=== PATIENT | male | born 1975 | race Caucasian/White ===

== ENCOUNTER 2017-09-27 18:36 | Emergency (ER) | payer OTHER ==
[~2017-09-27] VITALS: Ht 177.8 cm; Wt 122.9 kg
[~2017-09-27 18:36] MED LIST: ALBU90I; ALBU90OI; ALBU90OI INH; ALBU90OI6; ALBU90OI61 INH; ALBUIS; AMLO5 PO; AMOX500 PO; ARIP10 PO; ATEN25 PO; BUPR150T2 PO; CEPH500 PO; CITA20; CITA20 PO; CODACE30 PO; CRUTCH2 USE; CRUTCH4 USE; CRUTCH4 XX; CYCL10 PO; Colace100 MG PO; Crutch1 EACH MISC; DEPAKOTE; DIVA500EC; DIVA500ER; DOXY100 PO; DULO60 PO; ERGO400 PO; ESCI10; FLUO10 PO; FURO40; GLIP2.5ER PO; GLIP5 PO; GLIP5ER PO; HYDACE5 PO; HYDCOR2.5C PR; HYDHCL25 PO; HYDR1TAB94 PO; HYDR25SUP PR; Hair, Skin & N1 EACH; IBUP600 PO; IBUP800; IBUP800 PO; INDO50 PO; LEXAPRO; LISI20 PO; LISI5 PO; LORA.5 PO; LORA1 PO; METF500 PO; METFORMIN HCL500 MG; NAPR500 PO; NAPR550 PO; NYST100TC TOP; Naprosyn500 MG PO; Norco 5-325 Ta1 EACH PO; OXYACE5T PO; PRAV20 PO; PROACE100 PO; PROM25 PO; Percocet 5-3251 EACH PO; Prednisone20 MG PO; QUET100 PO; QUET25; QUET25 PO; RXCODACET PO; RXCYCL10 PO; RXHYDACE PO; RXLORA1 PO; RXPROACE PO; RXPROM25 PO; SERT50; SPIHYD PO; SULF10OPSA OU; Seroquel PO; Silvadene20 GM TOP; TOPI100 PO; TOPI25; TOPI25 PO; TRAZ100; TRAZ100 PO; TRIA80TC TOP; UNKNOWN B/P MED; Ultram50 MG PO; VENL75; ZOLP10 PO; Zofran Odt4 MG SL; [UNRECOGNIZED DRUG - REMARK]
[2017-09-27] MEDS ORDERED: TOPI100 PO (19:02)
[2017-09-27] MEDS ORDERED: ATOR10 (19:03)
[2017-09-27] MEDS ORDERED: PRAV20 (19:03)
[2017-09-27] MEDS ORDERED: LOSA25 (19:03)
[2017-09-27 19:54] LABS: BASOPHILS ABSOLUTE AUTO 0.04 K/mm3 (0.00-0.23); BASOPHILS PERCENT AUTO 1 % (0-2); EOSINOPHILS ABSOLUTE AUTO 0.29 K/mm3 (0.00-0.68); EOSINOPHILS PERCENT AUTO 3 % (0-6); Hemoglobin 14.2 g/dL (13.5-17.5); IMMATURE GRAN ABSOLUTE AUTO 0.04 K/mm3 (0.00-0.10); IMMATURE GRAN PERCENT AUTO 1 % (0-1); LYMPHOCYTES PERCENT AUTO 37 % (21-46); MONOCYTES ABSOLUTE AUTO 0.55 K/mm3 (0.16-1.47); MONOCYTES PERCENT AUTO 7 % (4-13); Mean Corpuscular HGB 29.6 pg (26.0-34.0); Mean Corpuscular HGB Conc 35.5 g/dL (31.5-36.5); Mean Corpuscular Volume 84 fL (80-100); Mean Platelet Volume 11.2 fL (9.1-12.4); NEUTROPHILS ABSOLUTE AUTO 4.44 K/mm3 (1.96-9.15); NEUTROPHILS PERCENT AUTO 53 % (41-73); Platelet Count 272 K/mm3 (150-400); RDW Coefficient Variation 11.8 % (11.7-14.2); RDW Standard Deviation 35.8 fL (35.1-46.3); Red Blood Cell Count 4.79 M/mm3 (4.30-5.90); White Blood Cell Count 8.46 K/mm3 (4.00-11.30)
[2017-09-27 20:09] LABS: Troponin I <0.015 ng/mL (0.000-0.040)
[2017-09-27 20:24] LABS: Alanine Aminotransfer (ALT/SGP 104 U/L (12-78); Albumin, Blood 3.6 g/dL (3.4-5.0); Albumin/Globulin Ratio 0.8 (0.8-1.8); Alk Phos 75 U/L (50-136); Anion Gap 7 mmol/L (6-16); Aspartate Aminotrans (AST/SGOT 76 U/L (12-37); Bilirubin, Total 0.4 mg/dL (0.1-1.0); Blood Urea Nitrogen 12 mg/dL (8-24); Bun/Creatinine Ratio 18.5 (12.0-20.0); CO2, Blood 25 mmol/L (21-32); Calcium, Blood 8.9 mg/dL (8.5-10.1); Chloride, Blood 104 mmol/L (98-108); Creatinine, Blood 0.65 mg/dL (0.60-1.20); Globulin, Blood 4.5 g/dL (2.2-4.0); Glomerular Filtration Rate >60 (60-); Glucose, Blood 236 mg/dL (70-99); Sodium, Blood 136 mmol/L (136-145); Total Protein, Blood 8.1 g/dL (6.4-8.2)
[2017-09-27] MEDS ORDERED: Prednisone20 MG PO (22:03)
== END 2017-09-27 22:15 | disposition home or self-care (01) ==
LOC: ER 18:36
PROVIDERS: Emergency Medicine
DX: J98.01 Acute bronchospasm (principal); I10 Essential (primary) hypertension; E11.9 Type 2 diabetes mellitus without complications; F32.9 Major depressive disorder, single episode, unspecified; F17.200 Nicotine dependence, unspecified, uncomplicated; G40.909 Epilepsy, unspecified, not intractable, without status epilepticus; Z79.899 Other long term (current) drug therapy; Z79.84 Long term (current) use of oral hypoglycemic drugs
CPT/HCPCS: 71046; 80053; 84484; 85025; 93005; 93010; 94640; 96361; 96374; 96375; 99284; J1885; J7030

== ENCOUNTER 2017-11-12 17:23 | Emergency (ER) | payer OTHER ==
[~2017-11-12] VITALS: Ht 172.7 cm; Wt 125.2 kg
[~2017-11-12 17:23] MED LIST changes: +ATOR10; +LOSA25; +PRAV20
[2017-11-12 17:57] LABS: BASOPHILS ABSOLUTE AUTO 0.05 K/mm3 (0.00-0.23); BASOPHILS PERCENT AUTO 1 % (0-2); EOSINOPHILS ABSOLUTE AUTO 0.28 K/mm3 (0.00-0.68); EOSINOPHILS PERCENT AUTO 4 % (0-6); Hematocrit 40.1 % (37.0-53.0); Hemoglobin 13.9 g/dL (13.5-17.5); IMMATURE GRAN ABSOLUTE AUTO 0.02 K/mm3 (0.00-0.10); IMMATURE GRAN PERCENT AUTO 0 % (0-1); LYMPHOCYTES ABSOLUTE AUTO 2.28 K/mm3 (0.84-5.20); LYMPHOCYTES PERCENT AUTO 32 % (21-46); MONOCYTES ABSOLUTE AUTO 0.46 K/mm3 (0.16-1.47); MONOCYTES PERCENT AUTO 7 % (4-13); Mean Corpuscular HGB 29.8 pg (26.0-34.0); Mean Corpuscular HGB Conc 34.7 g/dL (31.5-36.5); Mean Corpuscular Volume 86 fL (80-100); Mean Platelet Volume 10.6 fL (9.1-12.4); NEUTROPHILS ABSOLUTE AUTO 4.04 K/mm3 (1.96-9.15); NEUTROPHILS PERCENT AUTO 57 % (41-73); Platelet Count 232 K/mm3 (150-400); RDW Coefficient Variation 11.7 % (11.7-14.2); RDW Standard Deviation 36.4 fL (35.1-46.3); Red Blood Cell Count 4.67 M/mm3 (4.30-5.90); White Blood Cell Count 7.13 K/mm3 (4.00-11.30)
[2017-11-12] MEDS ORDERED: BASAGLAR K100 UNIT/1 SC (18:15)
[2017-11-12 18:23] LABS: Alanine Aminotransfer (ALT/SGP 49 U/L (12-78); Albumin, Blood 3.5 g/dL (3.4-5.0); Albumin/Globulin Ratio 0.9 (0.8-1.8); Alk Phos 75 U/L (50-136); Anion Gap 8 mmol/L (6-16); Aspartate Aminotrans (AST/SGOT 29 U/L (12-37); Bilirubin, Total 0.2 mg/dL (0.1-1.0); Blood Urea Nitrogen 12 mg/dL (8-24); Bun/Creatinine Ratio 17.4 (12.0-20.0); CO2, Blood 25 mmol/L (21-32); Calcium, Blood 8.9 mg/dL (8.5-10.1); Chloride, Blood 103 mmol/L (98-108); Creatinine, Blood 0.69 mg/dL (0.60-1.20); Globulin, Blood 4.1 g/dL (2.2-4.0); Glomerular Filtration Rate >60 (60-); Glucose, Blood 360 mg/dL (70-99); Potassium, Blood 4.2 mmol/L (3.5-5.5); Sodium, Blood 136 mmol/L (136-145); Total Protein, Blood 7.6 g/dL (6.4-8.2)
== END 2017-11-12 19:40 | disposition home or self-care (01) ==
LOC: ER 17:23
PROVIDERS: Emergency Medicine
DX: E11.65 Type 2 diabetes mellitus with hyperglycemia (principal); E72.51 Non-ketotic hyperglycinemia; G40.909 Epilepsy, unspecified, not intractable, without status epilepticus; I10 Essential (primary) hypertension; J45.909 Unspecified asthma, uncomplicated; F32.9 Major depressive disorder, single episode, unspecified; F17.200 Nicotine dependence, unspecified, uncomplicated; Z79.899 Other long term (current) drug therapy; Z79.84 Long term (current) use of oral hypoglycemic drugs; Z79.52 Long term (current) use of systemic steroids
CPT/HCPCS: 36415; 80053; 81000; 82947; 85025; 96360; 99283; J1815; J7030

== ENCOUNTER 2018-08-01 16:41 | Emergency (ER) | payer OTHER ==
[~2018-08-01] VITALS: Ht 172.7 cm; Wt 124.3 kg
[~2018-08-01 16:41] MED LIST changes: +BASAGLAR K100 UNIT/1 SC
[2018-08-01 17:15] LABS: BASOPHILS ABSOLUTE AUTO 0.05 K/mm3 (0.00-0.23); BASOPHILS PERCENT AUTO 1 % (0-2); EOSINOPHILS ABSOLUTE AUTO 0.17 K/mm3 (0.00-0.68); EOSINOPHILS PERCENT AUTO 2 % (0-6); Hematocrit 40.4 % (37.0-53.0); Hemoglobin 14.2 g/dL (13.5-17.5); IMMATURE GRAN ABSOLUTE AUTO 0.03 K/mm3 (0.00-0.10); IMMATURE GRAN PERCENT AUTO 0 % (0-1); LYMPHOCYTES ABSOLUTE AUTO 2.43 K/mm3 (0.84-5.20); LYMPHOCYTES PERCENT AUTO 34 % (21-46); MONOCYTES ABSOLUTE AUTO 0.58 K/mm3 (0.16-1.47); MONOCYTES PERCENT AUTO 8 % (4-13); Mean Corpuscular HGB Conc 35.1 g/dL (31.5-36.5); Mean Corpuscular Volume 85 fL (80-100); Mean Platelet Volume 10.9 fL (9.1-12.4); NEUTROPHILS ABSOLUTE AUTO 3.95 K/mm3 (1.96-9.15); NEUTROPHILS PERCENT AUTO 55 % (41-73); Platelet Count 236 K/mm3 (150-400); RDW Coefficient Variation 11.5 % (11.7-14.2); RDW Standard Deviation 35.4 fL (35.1-46.3); Red Blood Cell Count 4.74 M/mm3 (4.30-5.90); White Blood Cell Count 7.21 K/mm3 (4.00-11.30)
[2018-08-01 17:17] LABS: Base Excess Venous 0.8 mmol/L; Bicarbonate Venous 24.8 mmol/L (24.0-30.0); PCO2 Venous 43.6 mmHg (38-42); PO2 Venous 85.1 mmHg (38-42); pH Blood Venous 7.38 (7.34-7.37)
[2018-08-01 17:34] LABS: Alanine Aminotransfer (ALT/SGP 62 U/L (12-78); Albumin, Blood 3.5 g/dL (3.4-5.0); Albumin/Globulin Ratio 0.8 (0.8-1.8); Alk Phos 82 U/L (50-136); Anion Gap 8 mmol/L (6-16); Aspartate Aminotrans (AST/SGOT 25 U/L (12-37); Bilirubin, Total 0.2 mg/dL (0.1-1.0); Blood Urea Nitrogen 15 mg/dL (8-24); CO2, Blood 25 mmol/L (21-32); Calcium, Blood 8.9 mg/dL (8.5-10.1); Chloride, Blood 100 mmol/L (98-108); Creatinine, Blood 0.83 mg/dL (0.60-1.20); Globulin, Blood 4.2 g/dL (2.2-4.0); Glomerular Filtration Rate >60 (60-); Glucose, Blood 447 mg/dL (70-99); Potassium, Blood 4.3 mmol/L (3.5-5.5); Sodium, Blood 133 mmol/L (136-145); Total Protein, Blood 7.7 g/dL (6.4-8.2)
== END 2018-08-01 18:57 | disposition home or self-care (01) ==
LOC: ER 16:41
PROVIDERS: Internal Medicine
DX: E11.65 Type 2 diabetes mellitus with hyperglycemia (principal); Z79.4 Long term (current) use of insulin; I10 Essential (primary) hypertension; Z79.899 Other long term (current) drug therapy; F32.9 Major depressive disorder, single episode, unspecified
CPT/HCPCS: 36415; 80053; 82803; 82947; 85025; 99284; J1815

== ENCOUNTER 2018-08-20 15:35 | Emergency (ER) | payer OTHER ==
[~2018-08-20] VITALS: Ht 175.3 cm; Wt 126.1 kg
[~2018-08-20 15:35] MED LIST changes: -ATOR10; +ATOR10 PO; -LOSA25; +LOSA25 PO; -PRAV20
[2018-08-20] MEDS ORDERED: Humalog100 UNIT/1 SC (15:48)
[2018-08-20 17:00] LABS: Calcium, Ionized (POC) 1.18 mmol/L (1.10-1.46); Chloride (POC) 97 mmol/L (98-108); Creatinine (POC) 0.7 mg/dL (0.8-1.3); Glucose (ISTAT POC) 370 mg/dL (70-99); Hemoglobin (POC) 15.3 g/dL (13.5-17.5); Potassium (POC) 4.2 mmol/L (3.5-5.5); Sodium (POC) 137 mmol/L (135-148); Total CO2 (POC) 26 mmol/L (21-32)
== END 2018-08-20 17:13 | disposition home or self-care (01) ==
LOC: ER 15:35
PROVIDERS: Emergency Medicine
DX: E11.65 Type 2 diabetes mellitus with hyperglycemia (principal); Z79.899 Other long term (current) drug therapy; Z79.4 Long term (current) use of insulin; E11.9 Type 2 diabetes mellitus without complications; I10 Essential (primary) hypertension; J45.909 Unspecified asthma, uncomplicated
CPT/HCPCS: 80047; 82947; 85014; 99283

== ENCOUNTER 2018-09-25 18:55 | Emergency (ER) | payer OTHER ==
[~2018-09-25] VITALS: Ht 172.7 cm; Wt 126.1 kg
[~2018-09-25 18:55] MED LIST changes: +Humalog100 UNIT/1 SC
[2018-09-25] MEDS ORDERED: CEPH500 PO (19:44)
[2018-09-25] MEDS ORDERED: Norco 5-325 Ta1 EACH PO (19:44)
[2018-09-25] MEDS ORDERED: ACYC800 PO (19:44)
== END 2018-09-25 20:14 | disposition home or self-care (01) ==
LOC: ER 18:55
DX: B00.1 Herpesviral vesicular dermatitis (principal); L01.00 Impetigo, unspecified; E11.9 Type 2 diabetes mellitus without complications; I10 Essential (primary) hypertension; J45.909 Unspecified asthma, uncomplicated; R56.9 Unspecified convulsions; F17.210 Nicotine dependence, cigarettes, uncomplicated
CPT/HCPCS: 36415; 99283

== ENCOUNTER 2018-12-20 17:40 | Emergency (ER) | payer OTHER ==
[~2018-12-20] VITALS: Ht 172.7 cm; Wt 124.7 kg
[~2018-12-20 17:40] MED LIST changes: +ACYC800 PO
[2018-12-20 17:59] LABS: Source, Urine Clean Catch
[2018-12-20 18:02] LABS: Appearance, Urine Clear (Clear); Bilirubin, Urine Neg (Neg); Blood, Urine Neg (Neg); Color, Urine Yellow (P-Yellow); Glucose Qualitative, Urine 4+ (Neg); Ketones, Urine Neg (Neg); Leukocyte Esterase, Urine Neg (Neg); Nitrite, Urine Neg (Neg); Protein, Urine Neg (Neg); Urobilinogen, Urine NORM (Normal)
[2018-12-20 18:16] LABS: BASOPHILS ABSOLUTE AUTO 0.06 K/mm3 (0.00-0.23); BASOPHILS PERCENT AUTO 1 % (0-2); EOSINOPHILS ABSOLUTE AUTO 0.26 K/mm3 (0.00-0.68); EOSINOPHILS PERCENT AUTO 3 % (0-6); Hematocrit 42.3 % (37.0-53.0); Hemoglobin 14.8 g/dL (13.5-17.5); IMMATURE GRAN ABSOLUTE AUTO 0.05 K/mm3 (0.00-0.10); IMMATURE GRAN PERCENT AUTO 1 % (0-1); LYMPHOCYTES ABSOLUTE AUTO 2.98 K/mm3 (0.84-5.20); LYMPHOCYTES PERCENT AUTO 38 % (21-46); MONOCYTES PERCENT AUTO 6 % (4-13); Mean Corpuscular HGB 29.7 pg (26.0-34.0); Mean Corpuscular Volume 85 fL (80-100); Mean Platelet Volume 11.2 fL (9.1-12.4); NEUTROPHILS ABSOLUTE AUTO 3.91 K/mm3 (1.96-9.15); NEUTROPHILS PERCENT AUTO 50 % (41-73); Platelet Count 253 K/mm3 (150-400); RDW Coefficient Variation 11.8 % (11.7-14.2); RDW Standard Deviation 35.8 fL (35.1-46.3); Red Blood Cell Count 4.98 M/mm3 (4.30-5.90); White Blood Cell Count 7.76 K/mm3 (4.00-11.30)
[2018-12-20 18:17] LABS: Base Excess Venous 1.8 mmol/L; Bicarbonate Venous 25.6 mmol/L (24.0-30.0); PCO2 Venous 42.8 mmHg (38-42); PO2 Venous 62.1 mmHg (38-42)
[2018-12-20 18:53] LABS: Alanine Aminotransfer (ALT/SGP 70 U/L (12-78); Albumin, Blood 3.8 g/dL (3.4-5.0); Albumin/Globulin Ratio 0.9 (0.8-1.8); Alk Phos 81 U/L (50-136); Anion Gap 8 mmol/L (6-16); Aspartate Aminotrans (AST/SGOT 32 U/L (12-37); Bilirubin, Total 0.3 mg/dL (0.1-1.0); Blood Urea Nitrogen 13 mg/dL (8-24); Bun/Creatinine Ratio 18.3 (12.0-20.0); CO2, Blood 27 mmol/L (21-32); Calcium, Blood 9.4 mg/dL (8.5-10.1); Chloride, Blood 98 mmol/L (98-108); Creatinine, Blood 0.71 mg/dL (0.60-1.20); Globulin, Blood 4.3 g/dL (2.2-4.0); Glomerular Filtration Rate >60 (60-); Glucose, Blood 467 mg/dL (70-99); Potassium, Blood 3.6 mmol/L (3.5-5.5); Sodium, Blood 133 mmol/L (136-145); Total Protein, Blood 8.1 g/dL (6.4-8.2)
== END 2018-12-20 22:10 | disposition home or self-care (01) ==
LOC: ER 17:40
PROVIDERS: Emergency Medicine
DX: E11.65 Type 2 diabetes mellitus with hyperglycemia (principal); Z79.4 Long term (current) use of insulin; Z79.899 Other long term (current) drug therapy; G40.909 Epilepsy, unspecified, not intractable, without status epilepticus; I10 Essential (primary) hypertension; F32.9 Major depressive disorder, single episode, unspecified; F43.10 Post-traumatic stress disorder, unspecified; Z87.891 Personal history of nicotine dependence
CPT/HCPCS: 36415; 80053; 81003; 82010; 82803; 82947; 85025; 93005; 93010; 96360; 96361; 99285-25; J1815; J7030

== ENCOUNTER 2019-01-03 16:35 | Emergency (ER) | payer OTHER ==
[~2019-01-03] VITALS: Ht 172.7 cm; Wt 125.2 kg
[2019-01-03 17:31] LABS: BASOPHILS ABSOLUTE AUTO 0.06 K/mm3 (0.00-0.23); BASOPHILS PERCENT AUTO 1 % (0-2); EOSINOPHILS ABSOLUTE AUTO 0.22 K/mm3 (0.00-0.68); EOSINOPHILS PERCENT AUTO 3 % (0-6); Hematocrit 41.9 % (37.0-53.0); Hemoglobin 14.8 g/dL (13.5-17.5); IMMATURE GRAN ABSOLUTE AUTO 0.04 K/mm3 (0.00-0.10); IMMATURE GRAN PERCENT AUTO 1 % (0-1); LYMPHOCYTES ABSOLUTE AUTO 3.78 K/mm3 (0.84-5.20); LYMPHOCYTES PERCENT AUTO 45 % (21-46); MONOCYTES ABSOLUTE AUTO 0.56 K/mm3 (0.16-1.47); MONOCYTES PERCENT AUTO 7 % (4-13); Mean Corpuscular HGB 29.9 pg (26.0-34.0); Mean Corpuscular HGB Conc 35.3 g/dL (31.5-36.5); Mean Corpuscular Volume 85 fL (80-100); NEUTROPHILS ABSOLUTE AUTO 3.68 K/mm3 (1.96-9.15); NEUTROPHILS PERCENT AUTO 44 % (41-73); Platelet Count 253 K/mm3 (150-400); RDW Coefficient Variation 11.6 % (11.7-14.2); RDW Standard Deviation 35.2 fL (35.1-46.3); Red Blood Cell Count 4.95 M/mm3 (4.30-5.90); White Blood Cell Count 8.34 K/mm3 (4.00-11.30)
[2019-01-03 18:05] LABS: Alanine Aminotransfer (ALT/SGP 59 U/L (12-78); Albumin, Blood 3.8 g/dL (3.4-5.0); Albumin/Globulin Ratio 0.9 (0.8-1.8); Alk Phos 81 U/L (50-136); Anion Gap 6 mmol/L (6-16); Aspartate Aminotrans (AST/SGOT 27 U/L (12-37); Beta-hydroxybutyrate 0.9 mg/dL (0.2-2.8); Bilirubin, Total 0.5 mg/dL (0.1-1.0); Blood Urea Nitrogen 11 mg/dL (8-24); Bun/Creatinine Ratio 16.1 (12.0-20.0); CO2, Blood 27 mmol/L (21-32); Calcium, Blood 9.4 mg/dL (8.5-10.1); Chloride, Blood 99 mmol/L (98-108); Creatinine, Blood 0.68 mg/dL (0.60-1.20); Globulin, Blood 4.1 g/dL (2.2-4.0); Glomerular Filtration Rate >60 (60-); Glucose, Blood 387 mg/dL (70-99); Potassium, Blood 4.2 mmol/L (3.5-5.5); Sodium, Blood 132 mmol/L (136-145); Total Protein, Blood 7.9 g/dL (6.4-8.2)
== END 2019-01-03 22:54 | disposition home or self-care (01) ==
LOC: ER 16:35
PROVIDERS: Emergency Medicine
DX: E11.65 Type 2 diabetes mellitus with hyperglycemia (principal); Z79.4 Long term (current) use of insulin; Z79.899 Other long term (current) drug therapy; G40.909 Epilepsy, unspecified, not intractable, without status epilepticus; I11.0 Hypertensive heart disease with heart failure; J45.909 Unspecified asthma, uncomplicated; E11.9 Type 2 diabetes mellitus without complications; F32.9 Major depressive disorder, single episode, unspecified; F43.10 Post-traumatic stress disorder, unspecified; Z87.891 Personal history of nicotine dependence
CPT/HCPCS: 36415; 80053; 82010; 82947; 85025; 96360; 96361; 99283-25; J7030

== ENCOUNTER 2019-01-31 15:53 | Emergency (ER) | payer OTHER ==
[~2019-01-31] VITALS: Ht 172.7 cm; Wt 124.7 kg
[~2019-01-31 15:53] MED LIST changes: -ALBU90OI6; +ALBU90OI6 INH
[2019-01-31 16:50] LABS: BASOPHILS ABSOLUTE AUTO 0.06 K/mm3 (0.00-0.23); BASOPHILS PERCENT AUTO 1 % (0-2); EOSINOPHILS ABSOLUTE AUTO 0.33 K/mm3 (0.00-0.68); EOSINOPHILS PERCENT AUTO 5 % (0-6); Hematocrit 40.1 % (37.0-53.0); Hemoglobin 13.8 g/dL (13.5-17.5); IMMATURE GRAN ABSOLUTE AUTO 0.02 K/mm3 (0.00-0.10); IMMATURE GRAN PERCENT AUTO 0 % (0-1); LYMPHOCYTES ABSOLUTE AUTO 3.26 K/mm3 (0.84-5.20); LYMPHOCYTES PERCENT AUTO 46 % (21-46); MONOCYTES ABSOLUTE AUTO 0.56 K/mm3 (0.16-1.47); MONOCYTES PERCENT AUTO 8 % (4-13); Mean Corpuscular HGB 29.8 pg (26.0-34.0); Mean Corpuscular HGB Conc 34.4 g/dL (31.5-36.5); Mean Corpuscular Volume 87 fL (80-100); Mean Platelet Volume 10.8 fL (9.1-12.4); NEUTROPHILS ABSOLUTE AUTO 2.87 K/mm3 (1.96-9.15); NEUTROPHILS PERCENT AUTO 41 % (41-73); Platelet Count 260 K/mm3 (150-400); RDW Coefficient Variation 11.9 % (11.7-14.2); RDW Standard Deviation 37.9 fL (35.1-46.3); Red Blood Cell Count 4.63 M/mm3 (4.30-5.90)
[2019-01-31 16:55] LABS: Anion Gap 9 mmol/L (6-16); Blood Urea Nitrogen 16 mg/dL (8-24); Bun/Creatinine Ratio 19.3 (12.0-20.0); CO2, Blood 24 mmol/L (21-32); Calcium, Blood 8.8 mg/dL (8.5-10.1); Chloride, Blood 105 mmol/L (98-108); Creatinine, Blood 0.83 mg/dL (0.60-1.20); Glomerular Filtration Rate >60 (60-); Glucose, Blood 322 mg/dL (70-99); Sodium, Blood 138 mmol/L (136-145)
== END 2019-01-31 17:28 | disposition home or self-care (01) ==
LOC: ER 15:53
PROVIDERS: Physician Assistant
DX: G40.909 Epilepsy, unspecified, not intractable, without status epilepticus (principal); E11.65 Type 2 diabetes mellitus with hyperglycemia; Z79.4 Long term (current) use of insulin; Z79.899 Other long term (current) drug therapy; I10 Essential (primary) hypertension; E11.9 Type 2 diabetes mellitus without complications; F32.9 Major depressive disorder, single episode, unspecified; F43.10 Post-traumatic stress disorder, unspecified; Z87.891 Personal history of nicotine dependence
CPT/HCPCS: 36415; 80048; 82947; 85025; 93005; 93010; 96360; 99284-25; J7030

== ENCOUNTER 2019-02-21 11:29 | Emergency (ER) | payer OTHER ==
[~2019-02-21] VITALS: Ht 172.7 cm; Wt 122.0 kg
[2019-02-21] MEDS ORDERED: LAMO100 PO ×2 (11:39→11:41)
[2019-02-21] MEDS ORDERED: LAMOTRIGINE100 MG PO (11:40)
[2019-02-21 12:37] LABS: BASOPHILS ABSOLUTE AUTO 0.07 K/mm3 (0.00-0.23); BASOPHILS PERCENT AUTO 1 % (0-2); EOSINOPHILS ABSOLUTE AUTO 0.24 K/mm3 (0.00-0.68); EOSINOPHILS PERCENT AUTO 3 % (0-6); Hemoglobin 15.2 g/dL (13.5-17.5); IMMATURE GRAN ABSOLUTE AUTO 0.05 K/mm3 (0.00-0.10); IMMATURE GRAN PERCENT AUTO 1 % (0-1); LYMPHOCYTES ABSOLUTE AUTO 3.09 K/mm3 (0.84-5.20); LYMPHOCYTES PERCENT AUTO 38 % (21-46); MONOCYTES PERCENT AUTO 6 % (4-13); Mean Corpuscular HGB 29.6 pg (26.0-34.0); Mean Corpuscular HGB Conc 34.5 g/dL (31.5-36.5); Mean Corpuscular Volume 86 fL (80-100); Mean Platelet Volume 10.9 fL (9.1-12.4); NEUTROPHILS ABSOLUTE AUTO 4.21 K/mm3 (1.96-9.15); NEUTROPHILS PERCENT AUTO 52 % (41-73); Platelet Count 262 K/mm3 (150-400); RDW Coefficient Variation 11.4 % (11.7-14.2); RDW Standard Deviation 35.9 fL (35.1-46.3); Red Blood Cell Count 5.14 M/mm3 (4.30-5.90); White Blood Cell Count 8.16 K/mm3 (4.00-11.30)
[2019-02-21 12:50] LABS: Anion Gap 6 mmol/L (6-16); Blood Urea Nitrogen 15 mg/dL (8-24); Bun/Creatinine Ratio 20.6 (12.0-20.0); CO2, Blood 29 mmol/L (21-32); Calcium, Blood 9.5 mg/dL (8.5-10.1); Chloride, Blood 102 mmol/L (98-108); Creatinine, Blood 0.73 mg/dL (0.60-1.20); Glomerular Filtration Rate >60 (60-); Glucose, Blood 229 mg/dL (70-99); Potassium, Blood 4.4 mmol/L (3.5-5.5); Sodium, Blood 137 mmol/L (136-145)
== END 2019-02-21 14:10 | disposition home or self-care (01) ==
LOC: ER 11:29
PROVIDERS: Emergency Medicine
DX: S09.90XA Unspecified injury of head, initial encounter (principal); G40.909 Epilepsy, unspecified, not intractable, without status epilepticus; V00.131A Fall from skateboard, initial encounter; I10 Essential (primary) hypertension; J45.909 Unspecified asthma, uncomplicated; E11.9 Type 2 diabetes mellitus without complications; F32.9 Major depressive disorder, single episode, unspecified; F43.10 Post-traumatic stress disorder, unspecified; Z79.4 Long term (current) use of insulin; Z79.899 Other long term (current) drug therapy
CPT/HCPCS: 36415; 70450; 80048; 85025; 99284-25

== ENCOUNTER 2019-04-01 02:15 | Emergency (ER) | payer OTHER ==
[~2019-04-01] VITALS: Ht 172.7 cm; Wt 125.2 kg
[~2019-04-01 02:15] MED LIST changes: +LAMO100 PO; +LAMOTRIGINE100 MG PO
[2019-04-01] MEDS ORDERED: Keppra750 MG PO (03:26)
[2019-04-01] MEDS ORDERED: INSULANPEN SC (03:27)
[2019-04-01 03:41] LABS: BASOPHILS ABSOLUTE AUTO 0.05 K/mm3 (0.00-0.23); BASOPHILS PERCENT AUTO 1 % (0-2); EOSINOPHILS ABSOLUTE AUTO 0.26 K/mm3 (0.00-0.68); EOSINOPHILS PERCENT AUTO 3 % (0-6); Hematocrit 38.6 % (37.0-53.0); Hemoglobin 13.8 g/dL (13.5-17.5); IMMATURE GRAN ABSOLUTE AUTO 0.03 K/mm3 (0.00-0.10); IMMATURE GRAN PERCENT AUTO 0 % (0-1); LYMPHOCYTES ABSOLUTE AUTO 3.33 K/mm3 (0.84-5.20); LYMPHOCYTES PERCENT AUTO 40 % (21-46); MONOCYTES ABSOLUTE AUTO 0.53 K/mm3 (0.16-1.47); MONOCYTES PERCENT AUTO 6 % (4-13); Mean Corpuscular HGB 30.3 pg (26.0-34.0); Mean Corpuscular HGB Conc 35.8 g/dL (31.5-36.5); Mean Corpuscular Volume 85 fL (80-100); Mean Platelet Volume 10.4 fL (9.1-12.4); NEUTROPHILS ABSOLUTE AUTO 4.08 K/mm3 (1.96-9.15); NEUTROPHILS PERCENT AUTO 49 % (41-73); Platelet Count 292 K/mm3 (150-400); RDW Coefficient Variation 11.4 % (11.7-14.2); RDW Standard Deviation 34.9 fL (35.1-46.3); Red Blood Cell Count 4.56 M/mm3 (4.30-5.90); White Blood Cell Count 8.28 K/mm3 (4.00-11.30)
[2019-04-01 04:02] LABS: Alanine Aminotransfer (ALT/SGP 43 U/L (12-78); Albumin, Blood 3.6 g/dL (3.4-5.0); Albumin/Globulin Ratio 0.9 (0.8-1.8); Alk Phos 77 U/L (50-136); Anion Gap 8 mmol/L (6-16); Aspartate Aminotrans (AST/SGOT 21 U/L (12-37); Bilirubin, Total 0.3 mg/dL (0.1-1.0); Blood Urea Nitrogen 11 mg/dL (8-24); CO2, Blood 28 mmol/L (21-32); Calcium, Blood 8.7 mg/dL (8.5-10.1); Chloride, Blood 103 mmol/L (98-108); Creatinine, Blood 0.85 mg/dL (0.60-1.20); Globulin, Blood 4.2 g/dL (2.2-4.0); Glomerular Filtration Rate >60 (60-); Glucose, Blood 247 mg/dL (70-99); Potassium, Blood 3.8 mmol/L (3.5-5.5); Sodium, Blood 139 mmol/L (136-145); Total Protein, Blood 7.8 g/dL (6.4-8.2)
[2019-04-01 04:45] LABS: Ethanol (Alcohol), Blood, Med <3 mg/dL; Magnesium, Blood 2.2 mg/dL (1.6-2.4)
[2019-04-01] MEDS ORDERED: LACO50TA2 PO (05:38)
== END 2019-04-01 05:51 | disposition home or self-care (01) ==
LOC: ER 02:15
PROVIDERS: Emergency Medicine
DX: G40.909 Epilepsy, unspecified, not intractable, without status epilepticus (principal); Z79.899 Other long term (current) drug therapy; Z79.4 Long term (current) use of insulin; I10 Essential (primary) hypertension; E11.9 Type 2 diabetes mellitus without complications; J45.909 Unspecified asthma, uncomplicated; F32.9 Major depressive disorder, single episode, unspecified; F43.10 Post-traumatic stress disorder, unspecified; Z87.891 Personal history of nicotine dependence
CPT/HCPCS: 36415; 80053; 83735; 85025; 96365; 99284-25; G0480; J1953; J7030

== ENCOUNTER 2019-04-02 09:57 | Observation (INO) | payer OTHER ==
[~2019-04-02] VITALS: Ht 172.7 cm; Wt 125.2 kg
[~2019-04-02 09:57] MED LIST changes: +INSULANPEN SC; +Keppra750 MG PO; +LACO50TA2 PO
[2019-04-02 12:11] LABS: BASOPHILS ABSOLUTE AUTO 0.05 K/mm3 (0.00-0.23); BASOPHILS PERCENT AUTO 1 % (0-2); EOSINOPHILS ABSOLUTE AUTO 0.21 K/mm3 (0.00-0.68); EOSINOPHILS PERCENT AUTO 3 % (0-6); Hematocrit 40.6 % (37.0-53.0); Hemoglobin 14.4 g/dL (13.5-17.5); IMMATURE GRAN ABSOLUTE AUTO 0.06 K/mm3 (0.00-0.10); IMMATURE GRAN PERCENT AUTO 1 % (0-1); LYMPHOCYTES PERCENT AUTO 34 % (21-46); MONOCYTES ABSOLUTE AUTO 0.53 K/mm3 (0.16-1.47); MONOCYTES PERCENT AUTO 6 % (4-13); Mean Corpuscular HGB 30.1 pg (26.0-34.0); Mean Corpuscular HGB Conc 35.5 g/dL (31.5-36.5); Mean Corpuscular Volume 85 fL (80-100); Mean Platelet Volume 10.1 fL (9.1-12.4); NEUTROPHILS ABSOLUTE AUTO 4.81 K/mm3 (1.96-9.15); NEUTROPHILS PERCENT AUTO 56 % (41-73); Platelet Count 276 K/mm3 (150-400); RDW Coefficient Variation 11.3 % (11.7-14.2); RDW Standard Deviation 34.8 fL (35.1-46.3); Red Blood Cell Count 4.78 M/mm3 (4.30-5.90); White Blood Cell Count 8.56 K/mm3 (4.00-11.30)
[2019-04-02 12:38] LABS: Ethanol (Alcohol), Blood, Med <3 mg/dL; Salicylate 2.3 mg/dL (2.8-20.0); Thyroxine (T4) 8.4 ug/dL (4.5-12.1)
[2019-04-02 12:51] LABS: Alanine Aminotransfer (ALT/SGP 43 U/L (12-78); Albumin, Blood 3.8 g/dL (3.4-5.0); Albumin/Globulin Ratio 0.9 (0.8-1.8); Alk Phos 76 U/L (50-136); Anion Gap 6 mmol/L (6-16); Aspartate Aminotrans (AST/SGOT 13 U/L (12-37); Bilirubin, Total 0.4 mg/dL (0.1-1.0); Blood Urea Nitrogen 7 mg/dL (8-24); Bun/Creatinine Ratio 9.7 (12.0-20.0); CO2, Blood 29 mmol/L (21-32); Calcium, Blood 9.2 mg/dL (8.5-10.1); Chloride, Blood 106 mmol/L (98-108); Creatinine, Blood 0.72 mg/dL (0.60-1.20); Globulin, Blood 4.4 g/dL (2.2-4.0); Glomerular Filtration Rate >60 (60-); Glucose, Blood 165 mg/dL (70-99); Potassium, Blood 4.1 mmol/L (3.5-5.5); Sodium, Blood 141 mmol/L (136-145); Thyroid Stimulating Hormone 0.566 uIU/mL (0.360-4.800); Total Protein, Blood 8.2 g/dL (6.4-8.2)
[2019-04-02 12:53] LABS: Acetaminophen, Random <2.0 ug/mL (10.0-30.0)
[2019-04-02 15:47] LABS: Source, Urine Clean Catch
[2019-04-02 15:52] LABS: Appearance, Urine Clear (Clear); Bilirubin, Urine Neg (Neg); Blood, Urine Neg (Neg); Color, Urine Yellow (P-Yellow); Glucose Qualitative, Urine Neg (Neg); Ketones, Urine Neg (Neg); Leukocyte Esterase, Urine Neg (Neg); Nitrite, Urine Neg (Neg); Protein, Urine Neg (Neg); Urobilinogen, Urine NORM (Normal)
[2019-04-02 16:04] LABS: U Amphetamine Screen Not Detected; U Barbituate Screen Not Detected; U Benzodiazapine Screen Not Detected; U Buprenorphine Screen Not Detected; U Cannabinoids Screen Not Detected; U Cocaine Screen Not Detected; U Methadone Screen Not Detected; U Methamphetamine Screen Not Detected; U Opiates Screen Not Detected; U Oxycodone Screen Not Detected; U Phencyclidine Screen Not Detected; U Propoxyphene Screen Not Detected
[2019-04-03] MEDS ORDERED: Zoloft25 MG PO (09:28)
== END 2019-04-03 10:41 | disposition home or self-care (01) ==
LOC: ER 09:57 → ERHOLD 09:58 → ER 09:58 → EOR 09:58 → ERHOLD 04-03 10:41
PROVIDERS: Physician Assistant; ADMIT Emergency Medicine
DX: F32.9 Major depressive disorder, single episode, unspecified (principal); R29.898 Other symptoms and signs involving the musculoskeletal system; G40.909 Epilepsy, unspecified, not intractable, without status epilepticus; F43.10 Post-traumatic stress disorder, unspecified; I10 Essential (primary) hypertension; E11.9 Type 2 diabetes mellitus without complications; J45.909 Unspecified asthma, uncomplicated; Z79.899 Other long term (current) drug therapy; Z79.51 Long term (current) use of inhaled steroids; Z79.4 Long term (current) use of insulin; Z87.891 Personal history of nicotine dependence
CPT/HCPCS: 36415; 80053; 81003; 84436; 84443; 85025; 93005; 93010; 99285-25; G0378; G0480; Q3014

== ENCOUNTER 2019-04-04 20:29 | Emergency (ER) | payer OTHER ==
[~2019-04-04] VITALS: Ht 172.7 cm; Wt 125.2 kg
[~2019-04-04 20:29] MED LIST changes: +Zoloft25 MG PO
[2019-04-04 21:18] LABS: BASOPHILS ABSOLUTE AUTO 0.03 K/mm3 (0.00-0.23); BASOPHILS PERCENT AUTO 0 % (0-2); EOSINOPHILS ABSOLUTE AUTO 0.21 K/mm3 (0.00-0.68); EOSINOPHILS PERCENT AUTO 3 % (0-6); Hematocrit 38.2 % (37.0-53.0); Hemoglobin 13.7 g/dL (13.5-17.5); IMMATURE GRAN ABSOLUTE AUTO 0.06 K/mm3 (0.00-0.10); IMMATURE GRAN PERCENT AUTO 1 % (0-1); LYMPHOCYTES ABSOLUTE AUTO 3.04 K/mm3 (0.84-5.20); LYMPHOCYTES PERCENT AUTO 38 % (21-46); MONOCYTES ABSOLUTE AUTO 0.69 K/mm3 (0.16-1.47); MONOCYTES PERCENT AUTO 9 % (4-13); Mean Corpuscular HGB Conc 35.9 g/dL (31.5-36.5); Mean Corpuscular Volume 84 fL (80-100); Mean Platelet Volume 10.6 fL (9.1-12.4); NEUTROPHILS ABSOLUTE AUTO 3.99 K/mm3 (1.96-9.15); NEUTROPHILS PERCENT AUTO 50 % (41-73); Platelet Count 273 K/mm3 (150-400); RDW Coefficient Variation 11.2 % (11.7-14.2); RDW Standard Deviation 34.2 fL (35.1-46.3); Red Blood Cell Count 4.56 M/mm3 (4.30-5.90); White Blood Cell Count 8.02 K/mm3 (4.00-11.30)
[2019-04-04 21:30] LABS: Alanine Aminotransfer (ALT/SGP 37 U/L (12-78); Albumin, Blood 3.5 g/dL (3.4-5.0); Albumin/Globulin Ratio 0.8 (0.8-1.8); Alk Phos 75 U/L (50-136); Anion Gap 6 mmol/L (6-16); Aspartate Aminotrans (AST/SGOT 19 U/L (12-37); Bilirubin, Total 0.3 mg/dL (0.1-1.0); Blood Urea Nitrogen 10 mg/dL (8-24); Bun/Creatinine Ratio 13.8 (12.0-20.0); CO2, Blood 29 mmol/L (21-32); Calcium, Blood 9.3 mg/dL (8.5-10.1); Chloride, Blood 105 mmol/L (98-108); Creatinine, Blood 0.73 mg/dL (0.60-1.20); Globulin, Blood 4.3 g/dL (2.2-4.0); Glomerular Filtration Rate >60 (60-); Glucose, Blood 222 mg/dL (70-99); Potassium, Blood 4.2 mmol/L (3.5-5.5); Sodium, Blood 140 mmol/L (136-145); Total Protein, Blood 7.8 g/dL (6.4-8.2)
[2019-04-05] MEDS ORDERED: PROAIR RESPICL90 MCG IH (17:56)
[2019-04-05] MEDS ORDERED: Aspirin EC81 MG PO (17:56)
[2019-04-05] MEDS ORDERED: Zestril30 MG PO (17:57)
[2019-04-05] MEDS ORDERED: Oxcarbazepine600 MG PO (18:58)
== END 2019-04-04 23:03 | disposition home or self-care (01) ==
LOC: ER 20:29
PROVIDERS: Physician Assistant
DX: G40.909 Epilepsy, unspecified, not intractable, without status epilepticus (principal); Z79.899 Other long term (current) drug therapy; Z79.4 Long term (current) use of insulin; I10 Essential (primary) hypertension; J45.909 Unspecified asthma, uncomplicated; E11.9 Type 2 diabetes mellitus without complications; F32.9 Major depressive disorder, single episode, unspecified; F43.10 Post-traumatic stress disorder, unspecified; Z87.891 Personal history of nicotine dependence
CPT/HCPCS: 36415; 80053; 85025; 93005; 93010; 99284-25

== ENCOUNTER 2019-04-05 17:41 | Emergency (ER) | payer OTHER ==
[~2019-04-05] VITALS: Ht 172.7 cm; Wt 121.6 kg
[2019-04-05] MEDS ORDERED: PROAIR RESPICL90 MCG IH (17:56)
[2019-04-05] MEDS ORDERED: Aspirin EC81 MG PO (17:56)
[2019-04-05] MEDS ORDERED: Zestril30 MG PO (17:57)
[2019-04-05] MEDS ORDERED: Oxcarbazepine600 MG PO (18:58)
== END 2019-04-05 19:28 | disposition home or self-care (01) ==
LOC: ER 17:41
DX: G40.209 Localization-related (focal) (partial) symptomatic epilepsy and epileptic syndromes with complex partial seizures, not intractable, without status epilepticus (principal); J45.909 Unspecified asthma, uncomplicated; E11.9 Type 2 diabetes mellitus without complications; F32.9 Major depressive disorder, single episode, unspecified; F43.10 Post-traumatic stress disorder, unspecified; Z87.891 Personal history of nicotine dependence; Z79.82 Long term (current) use of aspirin; Z79.899 Other long term (current) drug therapy
CPT/HCPCS: 99284

== ENCOUNTER 2019-04-10 17:49 | Emergency (ER) | payer OTHER ==
[~2019-04-10] VITALS: Ht 172.7 cm; Wt 125.2 kg
[~2019-04-10 17:49] MED LIST changes: +Aspirin EC81 MG PO; +Oxcarbazepine600 MG PO; +PROAIR RESPICL90 MCG IH; +Zestril30 MG PO
[2019-04-10 18:15] LABS: Calcium, Ionized (POC) 1.11 mmol/L (1.10-1.46); Chloride (POC) 105 mmol/L (98-108); Creatinine (POC) 0.7 mg/dL (0.8-1.3); Glucose (ISTAT POC) 194 mg/dL (70-99); Hemoglobin (POC) 14.3 g/dL (13.5-17.5); Potassium (POC) 4.2 mmol/L (3.5-5.5); Sodium (POC) 137 mmol/L (135-148); Total CO2 (POC) 26 mmol/L (21-32)
== END 2019-04-10 19:21 | disposition home or self-care (01) ==
LOC: ER 17:49
PROVIDERS: Emergency Medicine
DX: G40.209 Localization-related (focal) (partial) symptomatic epilepsy and epileptic syndromes with complex partial seizures, not intractable, without status epilepticus (principal); S00.81XA Abrasion of other part of head, initial encounter; I10 Essential (primary) hypertension; E11.9 Type 2 diabetes mellitus without complications; F32.9 Major depressive disorder, single episode, unspecified; F43.10 Post-traumatic stress disorder, unspecified; J45.909 Unspecified asthma, uncomplicated; Z87.891 Personal history of nicotine dependence; W17.89XA Other fall from one level to another, initial encounter; Z79.899 Other long term (current) drug therapy; Z79.4 Long term (current) use of insulin; Z79.82 Long term (current) use of aspirin
CPT/HCPCS: 70450; 72125; 80047; 85014; 99285-25

== ENCOUNTER 2019-04-25 14:17 | Emergency (ER) | payer OTHER ==
[~2019-04-25] VITALS: Ht 177.8 cm; Wt 108.9 kg
[2019-04-25 15:09] LABS: BASOPHILS ABSOLUTE AUTO 0.07 K/mm3 (0.00-0.23); BASOPHILS PERCENT AUTO 1 % (0-2); EOSINOPHILS ABSOLUTE AUTO 0.22 K/mm3 (0.00-0.68); EOSINOPHILS PERCENT AUTO 3 % (0-6); Hematocrit 38.7 % (37.0-53.0); Hemoglobin 13.5 g/dL (13.5-17.5); IMMATURE GRAN ABSOLUTE AUTO 0.07 K/mm3 (0.00-0.10); IMMATURE GRAN PERCENT AUTO 1 % (0-1); LYMPHOCYTES ABSOLUTE AUTO 2.54 K/mm3 (0.84-5.20); LYMPHOCYTES PERCENT AUTO 38 % (21-46); MONOCYTES ABSOLUTE AUTO 0.52 K/mm3 (0.16-1.47); MONOCYTES PERCENT AUTO 8 % (4-13); Mean Corpuscular HGB 29.4 pg (26.0-34.0); Mean Corpuscular HGB Conc 34.9 g/dL (31.5-36.5); Mean Corpuscular Volume 84 fL (80-100); Mean Platelet Volume 10.5 fL (9.1-12.4); NEUTROPHILS PERCENT AUTO 49 % (41-73); Platelet Count 265 K/mm3 (150-400); RDW Coefficient Variation 11.5 % (11.7-14.2); RDW Standard Deviation 35.2 fL (35.1-46.3); Red Blood Cell Count 4.59 M/mm3 (4.30-5.90); White Blood Cell Count 6.72 K/mm3 (4.00-11.30)
[2019-04-25 15:25] LABS: Alanine Aminotransfer (ALT/SGP 50 U/L (12-78); Albumin, Blood 3.4 g/dL (3.4-5.0); Albumin/Globulin Ratio 0.9 (0.8-1.8); Alk Phos 66 U/L (50-136); Anion Gap 4 mmol/L (6-16); Aspartate Aminotrans (AST/SGOT 25 U/L (12-37); Bilirubin, Total 0.3 mg/dL (0.1-1.0); Blood Urea Nitrogen 10 mg/dL (8-24); Bun/Creatinine Ratio 15.5 (12.0-20.0); CO2, Blood 27 mmol/L (21-32); Calcium, Blood 8.7 mg/dL (8.5-10.1); Carbamazepine <0.5 ug/mL (4.0-12.0); Chloride, Blood 103 mmol/L (98-108); Creatinine, Blood 0.64 mg/dL (0.60-1.20); Globulin, Blood 3.9 g/dL (2.2-4.0); Glomerular Filtration Rate >60 (60-); Glucose, Blood 319 mg/dL (70-99); Potassium, Blood 4.4 mmol/L (3.5-5.5); Sodium, Blood 134 mmol/L (136-145); Total Protein, Blood 7.3 g/dL (6.4-8.2)
== END 2019-04-25 17:45 | disposition home or self-care (01) ==
LOC: ER 14:17
PROVIDERS: Emergency Medicine
DX: G40.909 Epilepsy, unspecified, not intractable, without status epilepticus (principal); E11.9 Type 2 diabetes mellitus without complications; F32.9 Major depressive disorder, single episode, unspecified; F43.10 Post-traumatic stress disorder, unspecified; J45.909 Unspecified asthma, uncomplicated; I10 Essential (primary) hypertension; Z79.4 Long term (current) use of insulin; Z79.899 Other long term (current) drug therapy; Z79.82 Long term (current) use of aspirin; Z87.891 Personal history of nicotine dependence
CPT/HCPCS: 36415; 70450; 80053; 80156; 80177; 85025; 93005; 93010; 96360; 96361; 99284-25; J7030

== ENCOUNTER 2019-08-03 20:52 | Emergency (ER) | payer OTHER ==
[~2019-08-03] VITALS: Ht 172.7 cm; Wt 125.2 kg
[2019-08-03 21:41] LABS: Base Excess Venous 2.4 mmol/L; Bicarbonate Venous 25.9 mmol/L (24.0-30.0); PCO2 Venous 44.6 mmHg (38-42)
[2019-08-03 21:49] LABS: BASOPHILS ABSOLUTE AUTO 0.03 K/mm3 (0.00-0.23); BASOPHILS PERCENT AUTO 0 % (0-2); EOSINOPHILS ABSOLUTE AUTO 0.18 K/mm3 (0.00-0.68); EOSINOPHILS PERCENT AUTO 2 % (0-6); Hematocrit 41.1 % (37.0-53.0); Hemoglobin 14.2 g/dL (13.5-17.5); IMMATURE GRAN ABSOLUTE AUTO 0.05 K/mm3 (0.00-0.10); IMMATURE GRAN PERCENT AUTO 1 % (0-1); LYMPHOCYTES PERCENT AUTO 29 % (21-46); MONOCYTES ABSOLUTE AUTO 0.59 K/mm3 (0.16-1.47); MONOCYTES PERCENT AUTO 7 % (4-13); Mean Corpuscular HGB 29.4 pg (26.0-34.0); Mean Corpuscular HGB Conc 34.5 g/dL (31.5-36.5); Mean Corpuscular Volume 85 fL (80-100); Mean Platelet Volume 10.4 fL (9.1-12.4); NEUTROPHILS ABSOLUTE AUTO 4.98 K/mm3 (1.96-9.15); NEUTROPHILS PERCENT AUTO 60 % (41-73); Platelet Count 252 K/mm3 (150-400); RDW Coefficient Variation 11.5 % (11.7-14.2); RDW Standard Deviation 35.2 fL (35.1-46.3); Red Blood Cell Count 4.83 M/mm3 (4.30-5.90); White Blood Cell Count 8.23 K/mm3 (4.00-11.30)
[2019-08-03 22:10] LABS: Alanine Aminotransfer (ALT/SGP 51 U/L (12-78); Albumin, Blood 3.7 g/dL (3.4-5.0); Albumin/Globulin Ratio 0.9 (0.8-1.8); Alk Phos 73 U/L (50-136); Anion Gap 7 mmol/L (6-16); Aspartate Aminotrans (AST/SGOT 20 U/L (12-37); Bilirubin, Total 0.2 mg/dL (0.1-1.0); Blood Urea Nitrogen 13 mg/dL (8-24); Bun/Creatinine Ratio 15.8 (12.0-20.0); CO2, Blood 25 mmol/L (21-32); Chloride, Blood 104 mmol/L (98-108); Creatinine, Blood 0.82 mg/dL (0.60-1.20); Globulin, Blood 4.2 g/dL (2.2-4.0); Glomerular Filtration Rate >60 (60-); Glucose, Blood 303 mg/dL (70-99); Potassium, Blood 4.1 mmol/L (3.5-5.5); Sodium, Blood 136 mmol/L (136-145); Total Protein, Blood 7.9 g/dL (6.4-8.2); Troponin I <0.015 ng/mL (0.000-0.040)
== END 2019-08-03 23:20 | disposition home or self-care (01) ==
LOC: ER 20:52
PROVIDERS: Physician Assistant
DX: E11.65 Type 2 diabetes mellitus with hyperglycemia (principal); G40.909 Epilepsy, unspecified, not intractable, without status epilepticus; I10 Essential (primary) hypertension; J45.909 Unspecified asthma, uncomplicated; F32.9 Major depressive disorder, single episode, unspecified; F43.10 Post-traumatic stress disorder, unspecified; Z79.899 Other long term (current) drug therapy; Z79.82 Long term (current) use of aspirin; Z79.4 Long term (current) use of insulin
CPT/HCPCS: 36415; 71046; 80053; 82803; 82947; 84484; 85025; 93005; 93010; 99283-25

== ENCOUNTER 2019-10-02 23:32 | Emergency (ER) | payer OTHER ==
[~2019-10-02] VITALS: Ht 172.7 cm; Wt 126.1 kg
[2019-10-03] MEDS ORDERED: BASAGLAR K100 UNIT/2 SQ (00:09)
[2019-10-03] MEDS ORDERED: Humalog100 UNIT/3 SQ (00:11)
[2019-10-03 00:17] LABS: BASOPHILS ABSOLUTE AUTO 0.08 K/mm3 (0.00-0.23); BASOPHILS PERCENT AUTO 1 % (0-2); EOSINOPHILS ABSOLUTE AUTO 0.26 K/mm3 (0.00-0.68); EOSINOPHILS PERCENT AUTO 3 % (0-6); Hematocrit 39.3 % (37.0-53.0); Hemoglobin 13.6 g/dL (13.5-17.5); IMMATURE GRAN ABSOLUTE AUTO 0.09 K/mm3 (0.00-0.10); IMMATURE GRAN PERCENT AUTO 1 % (0-1); LYMPHOCYTES ABSOLUTE AUTO 3.12 K/mm3 (0.84-5.20); LYMPHOCYTES PERCENT AUTO 37 % (21-46); MONOCYTES PERCENT AUTO 7 % (4-13); Mean Corpuscular HGB 29.6 pg (26.0-34.0); Mean Corpuscular HGB Conc 34.6 g/dL (31.5-36.5); Mean Corpuscular Volume 86 fL (80-100); Mean Platelet Volume 10.5 fL (9.1-12.4); NEUTROPHILS PERCENT AUTO 50 % (41-73); Platelet Count 257 K/mm3 (150-400); RDW Coefficient Variation 11.5 % (11.7-14.2); RDW Standard Deviation 35.4 fL (35.1-46.3); Red Blood Cell Count 4.59 M/mm3 (4.30-5.90); White Blood Cell Count 8.35 K/mm3 (4.00-11.30)
[2019-10-03 00:37] LABS: Alanine Aminotransfer (ALT/SGP 54 U/L (12-78); Albumin, Blood 3.5 g/dL (3.4-5.0); Albumin/Globulin Ratio 0.9 (0.8-1.8); Alk Phos 67 U/L (50-136); Anion Gap 5 mmol/L (6-16); Aspartate Aminotrans (AST/SGOT 28 U/L (12-37); Bilirubin, Total 0.1 mg/dL (0.1-1.0); Blood Urea Nitrogen 15 mg/dL (8-24); Bun/Creatinine Ratio 13.9 (12.0-20.0); CO2, Blood 29 mmol/L (21-32); Calcium, Blood 8.4 mg/dL (8.5-10.1); Chloride, Blood 100 mmol/L (98-108); Creatinine, Blood 1.08 mg/dL (0.60-1.20); Glomerular Filtration Rate >60 (60-); Glucose, Blood 302 mg/dL (70-99); Potassium, Blood 4.4 mmol/L (3.5-5.5); Sodium, Blood 134 mmol/L (136-145); Total Protein, Blood 7.5 g/dL (6.4-8.2); Troponin I <0.015 ng/mL (0.000-0.040)
== END 2019-10-03 01:26 | disposition home or self-care (01) ==
LOC: ER 23:32
PROVIDERS: Emergency Medicine
DX: E11.65 Type 2 diabetes mellitus with hyperglycemia (principal); I10 Essential (primary) hypertension; J45.909 Unspecified asthma, uncomplicated; F32.9 Major depressive disorder, single episode, unspecified; Z87.891 Personal history of nicotine dependence; Z79.4 Long term (current) use of insulin
CPT/HCPCS: 36415; 80053; 84484; 85025; 93005; 93010; 96360; 99283-25; J7030

== ENCOUNTER 2020-01-02 18:20 | Emergency (ER) | payer OTHER ==
[~2020-01-02] VITALS: Ht 170.2 cm; Wt 124.7 kg
[~2020-01-02 18:20] MED LIST changes: +BASAGLAR K100 UNIT/2 SQ; +Humalog100 UNIT/3 SQ
[2020-01-02 18:57] LABS: BASOPHILS ABSOLUTE AUTO 0.05 K/mm3 (0.00-0.23); BASOPHILS PERCENT AUTO 1 % (0-2); EOSINOPHILS ABSOLUTE AUTO 0.21 K/mm3 (0.00-0.68); EOSINOPHILS PERCENT AUTO 3 % (0-6); Hematocrit 38.3 % (37.0-53.0); Hemoglobin 13.2 g/dL (13.5-17.5); IMMATURE GRAN ABSOLUTE AUTO 0.06 K/mm3 (0.00-0.10); IMMATURE GRAN PERCENT AUTO 1 % (0-1); LYMPHOCYTES PERCENT AUTO 36 % (21-46); MONOCYTES ABSOLUTE AUTO 0.62 K/mm3 (0.16-1.47); MONOCYTES PERCENT AUTO 8 % (4-13); Mean Corpuscular HGB 29.3 pg (26.0-34.0); Mean Corpuscular HGB Conc 34.5 g/dL (31.5-36.5); Mean Corpuscular Volume 85 fL (80-100); Mean Platelet Volume 10.5 fL (9.1-12.4); NEUTROPHILS ABSOLUTE AUTO 4.25 K/mm3 (1.96-9.15); NEUTROPHILS PERCENT AUTO 53 % (41-73); Platelet Count 235 K/mm3 (150-400); RDW Coefficient Variation 11.7 % (11.7-14.2); RDW Standard Deviation 35.8 fL (35.1-46.3); Red Blood Cell Count 4.51 M/mm3 (4.30-5.90); White Blood Cell Count 8.09 K/mm3 (4.00-11.30)
[2020-01-02 19:10] LABS: Ethanol (Alcohol), Blood, Med <3 mg/dL
[2020-01-02 19:15] LABS: Alanine Aminotransfer (ALT/SGP 51 U/L (12-78); Albumin, Blood 3.4 g/dL (3.4-5.0); Albumin/Globulin Ratio 0.8 (0.8-1.8); Alk Phos 69 U/L (50-136); Anion Gap 7 mmol/L (6-16); Aspartate Aminotrans (AST/SGOT 28 U/L (12-37); Bilirubin, Total 0.2 mg/dL (0.1-1.0); Blood Urea Nitrogen 11 mg/dL (8-24); Bun/Creatinine Ratio 13.8 (12.0-20.0); CO2, Blood 26 mmol/L (21-32); Calcium, Blood 9.1 mg/dL (8.5-10.1); Chloride, Blood 103 mmol/L (98-108); Globulin, Blood 4.1 g/dL (2.2-4.0); Glomerular Filtration Rate >60 (60-); Glucose, Blood 263 mg/dL (70-99); Potassium, Blood 4.1 mmol/L (3.5-5.5); Sodium, Blood 136 mmol/L (136-145); Total Protein, Blood 7.5 g/dL (6.4-8.2)
== END 2020-01-02 19:49 | disposition home or self-care (01) ==
LOC: ER 18:20
PROVIDERS: Emergency Medicine
DX: G40.901 Epilepsy, unspecified, not intractable, with status epilepticus (principal); E11.9 Type 2 diabetes mellitus without complications; I10 Essential (primary) hypertension; F32.9 Major depressive disorder, single episode, unspecified; F43.10 Post-traumatic stress disorder, unspecified; Z87.891 Personal history of nicotine dependence; Z79.4 Long term (current) use of insulin
CPT/HCPCS: 80053; 82947; 83735; 85025; 99284; G0480

== ENCOUNTER 2020-01-14 00:52 | Emergency (ER) | payer OTHER ==
[~2020-01-14] VITALS: Ht 172.7 cm; Wt 124.7 kg
[2020-01-14 02:16] LABS: BASOPHILS ABSOLUTE AUTO 0.04 K/mm3 (0.00-0.23); BASOPHILS PERCENT AUTO 1 % (0-2); EOSINOPHILS ABSOLUTE AUTO 0.16 K/mm3 (0.00-0.68); EOSINOPHILS PERCENT AUTO 2 % (0-6); Hematocrit 39.5 % (37.0-53.0); Hemoglobin 13.5 g/dL (13.5-17.5); IMMATURE GRAN ABSOLUTE AUTO 0.16 K/mm3 (0.00-0.10); IMMATURE GRAN PERCENT AUTO 2 % (0-1); LYMPHOCYTES ABSOLUTE AUTO 3.33 K/mm3 (0.84-5.20); LYMPHOCYTES PERCENT AUTO 38 % (21-46); MONOCYTES ABSOLUTE AUTO 0.64 K/mm3 (0.16-1.47); MONOCYTES PERCENT AUTO 7 % (4-13); Mean Corpuscular HGB 28.7 pg (26.0-34.0); Mean Corpuscular HGB Conc 34.2 g/dL (31.5-36.5); Mean Corpuscular Volume 84 fL (80-100); Mean Platelet Volume 10.5 fL (9.1-12.4); NEUTROPHILS ABSOLUTE AUTO 4.37 K/mm3 (1.96-9.15); NEUTROPHILS PERCENT AUTO 50 % (41-73); Platelet Count 250 K/mm3 (150-400); RDW Coefficient Variation 11.8 % (11.7-14.2); RDW Standard Deviation 35.8 fL (35.1-46.3)
[2020-01-14 02:34] LABS: Alanine Aminotransfer (ALT/SGP 56 U/L (12-78); Albumin, Blood 3.5 g/dL (3.4-5.0); Albumin/Globulin Ratio 0.8 (0.8-1.8); Alk Phos 74 U/L (50-136); Anion Gap 5 mmol/L (6-16); Aspartate Aminotrans (AST/SGOT 22 U/L (12-37); Bilirubin, Total 0.1 mg/dL (0.1-1.0); Blood Urea Nitrogen 14 mg/dL (8-24); Bun/Creatinine Ratio 18.3 (12.0-20.0); CO2, Blood 27 mmol/L (21-32); Calcium, Blood 8.4 mg/dL (8.5-10.1); Chloride, Blood 102 mmol/L (98-108); Creatinine, Blood 0.76 mg/dL (0.60-1.20); Globulin, Blood 4.5 g/dL (2.2-4.0); Glomerular Filtration Rate >60 (60-); Glucose, Blood 353 mg/dL (70-99); Potassium, Blood 4.2 mmol/L (3.5-5.5); Sodium, Blood 134 mmol/L (136-145)
[2020-01-14 03:06] LABS: Source, Urine Clean Catch
[2020-01-14 03:08] LABS: Bilirubin, Urine Neg (Neg); Blood, Urine Neg (Neg); Glucose Qualitative, Urine 4+ (Neg); Ketones, Urine Neg (Neg); Leukocyte Esterase, Urine Neg (Neg); Nitrite, Urine Neg (Neg); Protein, Urine Neg (Neg); Urobilinogen, Urine NORM (Normal)
[2020-01-14 03:09] LABS: Appearance, Urine Clear (Clear); Color, Urine Yellow (P-Yellow)
== END 2020-01-14 04:26 | disposition home or self-care (01) ==
LOC: ER 00:52
PROVIDERS: Emergency Medicine
DX: E11.65 Type 2 diabetes mellitus with hyperglycemia (principal); J45.909 Unspecified asthma, uncomplicated; I10 Essential (primary) hypertension; Z79.4 Long term (current) use of insulin; Z79.899 Other long term (current) drug therapy; Z87.891 Personal history of nicotine dependence
CPT/HCPCS: 36415; 80053; 81003; 82947; 85025; 99284

== ENCOUNTER 2020-08-02 02:45 | Emergency (ER) | payer OTHER ==
[~2020-08-02] VITALS: Ht 172.7 cm; Wt 124.7 kg
[2020-08-02] MEDS ORDERED: Keppra750 MG PO (03:06)
[2020-08-02] MEDS ORDERED: TRILEPTAL600 M3 PO (03:06)
[2020-08-02 03:47] LABS: BASOPHILS ABSOLUTE AUTO 0.06 K/mm3 (0.00-0.23); BASOPHILS PERCENT AUTO 1 % (0-2); EOSINOPHILS ABSOLUTE AUTO 0.19 K/mm3 (0.00-0.68); EOSINOPHILS PERCENT AUTO 2 % (0-6); Hematocrit 42.3 % (37.0-53.0); Hemoglobin 14.3 g/dL (13.5-17.5); IMMATURE GRAN ABSOLUTE AUTO 0.06 K/mm3 (0.00-0.10); IMMATURE GRAN PERCENT AUTO 1 % (0-1); LYMPHOCYTES ABSOLUTE AUTO 3.27 K/mm3 (0.84-5.20); LYMPHOCYTES PERCENT AUTO 40 % (21-46); MONOCYTES ABSOLUTE AUTO 0.62 K/mm3 (0.16-1.47); MONOCYTES PERCENT AUTO 8 % (4-13); Mean Corpuscular HGB 28.6 pg (26.0-34.0); Mean Corpuscular HGB Conc 33.8 g/dL (31.5-36.5); Mean Corpuscular Volume 85 fL (80-100); Mean Platelet Volume 10.6 fL (9.1-12.4); NEUTROPHILS ABSOLUTE AUTO 3.92 K/mm3 (1.96-9.15); NEUTROPHILS PERCENT AUTO 48 % (41-73); Platelet Count 261 K/mm3 (150-400); RDW Coefficient Variation 11.7 % (11.7-14.2); RDW Standard Deviation 35.4 fL (35.1-46.3); White Blood Cell Count 8.12 K/mm3 (4.00-11.30)
[2020-08-02 04:03] LABS: Alanine Aminotransfer (ALT/SGP 72 U/L (12-78); Albumin, Blood 3.5 g/dL (3.4-5.0); Albumin/Globulin Ratio 0.8 (0.8-1.8); Alk Phos 81 U/L (50-136); Anion Gap 5 mmol/L (6-16); Aspartate Aminotrans (AST/SGOT 31 U/L (12-37); Bilirubin, Total 0.4 mg/dL (0.1-1.0); Blood Urea Nitrogen 9 mg/dL (8-24); Bun/Creatinine Ratio 12.2 (12.0-20.0); CO2, Blood 30 mmol/L (21-32); Calcium, Blood 8.9 mg/dL (8.5-10.1); Chloride, Blood 104 mmol/L (98-108); Creatinine, Blood 0.74 mg/dL (0.60-1.20); Globulin, Blood 4.2 g/dL (2.2-4.0); Glomerular Filtration Rate >60 (60-); Glucose, Blood 306 mg/dL (70-99); Potassium, Blood 3.8 mmol/L (3.5-5.5); Sodium, Blood 139 mmol/L (136-145); Total Protein, Blood 7.7 g/dL (6.4-8.2)
== END 2020-08-02 05:39 | disposition home or self-care (01) ==
LOC: ER 02:45
PROVIDERS: Emergency Medicine
DX: R10.13 Epigastric pain (principal); I10 Essential (primary) hypertension; E11.9 Type 2 diabetes mellitus without complications; Z87.891 Personal history of nicotine dependence; Z79.4 Long term (current) use of insulin; Z79.899 Other long term (current) drug therapy
CPT/HCPCS: 36415; 74176; 80053; 85025; 96374; 96375; 99284-25; J1170; J2405

== ENCOUNTER 2020-12-21 00:37 | Emergency (ER) | payer OTHER ==
[~2020-12-21] VITALS: Ht 170.2 cm; Wt 122.9 kg
[~2020-12-21 00:37] MED LIST changes: +ERYT.5TO LEFTEYE; +LACO50TA2; +PRAZ5 PO; +SERT100 PO; +TRILEPTAL600 M3 PO
== END 2020-12-21 05:26 | disposition home or self-care (01) ==
LOC: ER 00:37
DX: R51.9 Headache, unspecified (principal); G40.909 Epilepsy, unspecified, not intractable, without status epilepticus; I10 Essential (primary) hypertension; E11.9 Type 2 diabetes mellitus without complications; J45.909 Unspecified asthma, uncomplicated; Z79.4 Long term (current) use of insulin; Z79.899 Other long term (current) drug therapy; Z87.891 Personal history of nicotine dependence
CPT/HCPCS: 70450; 96372-59; 99283-25; A9270; J1200; J1885; J3030

== ENCOUNTER 2021-01-08 23:43 | Emergency (ER) | payer OTHER ==
[~2021-01-08] VITALS: Ht 170.2 cm; Wt 122.5 kg
== END 2021-01-09 01:40 | disposition home or self-care (01) ==
LOC: ER 23:43
DX: G40.909 Epilepsy, unspecified, not intractable, without status epilepticus (principal); I10 Essential (primary) hypertension; J45.909 Unspecified asthma, uncomplicated; E11.9 Type 2 diabetes mellitus without complications; Z79.4 Long term (current) use of insulin; Z87.891 Personal history of nicotine dependence; Z79.899 Other long term (current) drug therapy
CPT/HCPCS: 70450; 72125; 93005; 93010; 96365; 96375; 99284; J1885; J1953

== ENCOUNTER 2021-02-01 22:39 | Emergency (ER) | payer OTHER ==
[~2021-02-01] VITALS: Ht 170.2 cm; Wt 123.4 kg
[2021-02-02 00:40] LABS: Chloride (POC) 103 mmol/L (98-108); Creatinine (POC) 0.6 mg/dL (0.8-1.3); Glucose (ISTAT POC) 129 mg/dL (70-99); Hemoglobin (POC) 12.6 g/dL (13.5-17.5); Potassium (POC) 3.7 mmol/L (3.5-5.5); Sodium (POC) 139 mmol/L (135-148); Total CO2 (POC) 23 mmol/L (21-32)
== END 2021-02-02 00:59 | disposition home or self-care (01) ==
LOC: ER 22:39
PROVIDERS: Emergency Medicine
DX: S09.90XA Unspecified injury of head, initial encounter (principal); I10 Essential (primary) hypertension; E11.9 Type 2 diabetes mellitus without complications; G40.909 Epilepsy, unspecified, not intractable, without status epilepticus; Z79.4 Long term (current) use of insulin; Z79.899 Other long term (current) drug therapy; W01.10XA Fall on same level from slipping, tripping and stumbling with subsequent striking against unspecified object, initial encounter
CPT/HCPCS: 70450; 80047; 85014; 99284-25

== ENCOUNTER 2021-02-11 23:07 | Emergency (ER) | payer OTHER ==
[~2021-02-11] VITALS: Ht 170.2 cm; Wt 124.7 kg
[2021-02-12 00:41] LABS: BASOPHILS ABSOLUTE AUTO 0.06 K/mm3 (0.00-0.23); BASOPHILS PERCENT AUTO 1 % (0-2); EOSINOPHILS ABSOLUTE AUTO 0.22 K/mm3 (0.00-0.68); EOSINOPHILS PERCENT AUTO 3 % (0-6); Hematocrit 38.2 % (37.0-53.0); Hemoglobin 13.4 g/dL (13.5-17.5); IMMATURE GRAN ABSOLUTE AUTO 0.06 K/mm3 (0.00-0.10); IMMATURE GRAN PERCENT AUTO 1 % (0-1); LYMPHOCYTES ABSOLUTE AUTO 3.81 K/mm3 (0.84-5.20); LYMPHOCYTES PERCENT AUTO 43 % (21-46); MONOCYTES ABSOLUTE AUTO 0.57 K/mm3 (0.16-1.47); MONOCYTES PERCENT AUTO 6 % (4-13); Mean Corpuscular HGB 29.1 pg (26.0-34.0); Mean Corpuscular HGB Conc 35.1 g/dL (31.5-36.5); Mean Corpuscular Volume 83 fL (80-100); Mean Platelet Volume 10.4 fL (9.1-12.4); NEUTROPHILS ABSOLUTE AUTO 4.19 K/mm3 (1.96-9.15); NEUTROPHILS PERCENT AUTO 47 % (41-73); Platelet Count 263 K/mm3 (150-400); RDW Coefficient Variation 11.7 % (11.7-14.2); RDW Standard Deviation 34.8 fL (35.1-46.3); Red Blood Cell Count 4.61 M/mm3 (4.30-5.90); White Blood Cell Count 8.91 K/mm3 (4.00-11.30)
[2021-02-12 00:57] LABS: Anion Gap 4 mmol/L (6-16); Blood Urea Nitrogen 12 mg/dL (8-24); Bun/Creatinine Ratio 16.8 (12.0-20.0); CO2, Blood 28 mmol/L (21-32); Calcium, Blood 8.8 mg/dL (8.5-10.1); Chloride, Blood 104 mmol/L (98-108); Creatinine, Blood 0.71 mg/dL (0.60-1.20); Glomerular Filtration Rate >60 (60-); Glucose, Blood 162 mg/dL (70-99); Magnesium, Blood 2.1 mg/dL (1.6-2.4); Potassium, Blood 4.3 mmol/L (3.5-5.5); Sodium, Blood 136 mmol/L (136-145)
[2021-02-12] MEDS ORDERED: Valium5 MG PO (02:06)
[2021-02-12] MEDS ORDERED: ACETAMINOPHEN500 MG PO (02:06)
[2021-02-12] MEDS ORDERED: LIDO700A20 TOP (02:06)
== END 2021-02-12 02:26 | disposition home or self-care (01) ==
LOC: ER 23:07
PROVIDERS: Emergency Medicine
DX: R56.9 Unspecified convulsions (principal); M62.838 Other muscle spasm; Z79.4 Long term (current) use of insulin; Z79.899 Other long term (current) drug therapy
CPT/HCPCS: 80048; 83735; 85025; 96365; 96366; 96375; 99284-25; A9270; J1953; J3360

== ENCOUNTER 2021-02-24 21:17 | Emergency (ER) | payer OTHER | END 2021-02-24 22:33 | disposition home or self-care (01) | LOC: ER 21:17 | DX: S20.212A Contusion of left front wall of thorax, initial encounter (principal); I10 Essential (primary) hypertension; E11.9 Type 2 diabetes mellitus without complications; Z79.4 Long term (current) use of insulin; Z79.899 Other long term (current) drug therapy ==

== ENCOUNTER 2021-03-14 00:38 | Emergency (ER) | payer OTHER ==
[~2021-03-14] VITALS: Ht 172.7 cm; Wt 123.4 kg
[~2021-03-14 00:38] MED LIST changes: +ACETAMINOPHEN500 MG PO; +LIDO700A20 TOP; +Valium5 MG PO
[2021-03-14 01:59] LABS: BASOPHILS ABSOLUTE AUTO 0.04 K/mm3 (0.00-0.23); BASOPHILS PERCENT AUTO 1 % (0-2); EOSINOPHILS ABSOLUTE AUTO 0.16 K/mm3 (0.00-0.68); EOSINOPHILS PERCENT AUTO 2 % (0-6); Hematocrit 33.4 % (37.0-53.0); Hemoglobin 11.8 g/dL (13.5-17.5); Mean Corpuscular HGB 29.9 pg (26.0-34.0); Mean Corpuscular HGB Conc 35.3 g/dL (31.5-36.5); Mean Corpuscular Volume 85 fL (80-100); Mean Platelet Volume 10.4 fL (9.1-12.4); Platelet Count 217 K/mm3 (150-400); RDW Coefficient Variation 12.2 % (11.7-14.2); RDW Standard Deviation 37.6 fL (35.1-46.3); Red Blood Cell Count 3.95 M/mm3 (4.30-5.90); White Blood Cell Count 6.91 K/mm3 (4.00-11.30)
[2021-03-14 02:00] LABS: IMMATURE GRAN ABSOLUTE AUTO 0.06 K/mm3 (0.00-0.10); IMMATURE GRAN PERCENT AUTO 1 % (0-1); LYMPHOCYTES ABSOLUTE AUTO 2.66 K/mm3 (0.84-5.20); LYMPHOCYTES PERCENT AUTO 39 % (21-46); MONOCYTES ABSOLUTE AUTO 0.66 K/mm3 (0.16-1.47); MONOCYTES PERCENT AUTO 10 % (4-13); NEUTROPHILS ABSOLUTE AUTO 3.33 K/mm3 (1.96-9.15); NEUTROPHILS PERCENT AUTO 48 % (41-73)
[2021-03-14 02:07] LABS: Alanine Aminotransfer (ALT/SGP 44 U/L (12-78); Albumin, Blood 3.4 g/dL (3.4-5.0); Albumin/Globulin Ratio 0.9 (0.8-1.8); Alk Phos 88 U/L (50-136); Anion Gap 6 mmol/L (6-16); Aspartate Aminotrans (AST/SGOT 20 U/L (12-37); Bilirubin, Total 0.2 mg/dL (0.1-1.0); Blood Urea Nitrogen 14 mg/dL (8-24); Bun/Creatinine Ratio 15.8 (12.0-20.0); CO2, Blood 28 mmol/L (21-32); Calcium, Blood 8.3 mg/dL (8.5-10.1); Chloride, Blood 104 mmol/L (98-108); Creatinine, Blood 0.88 mg/dL (0.60-1.20); Ethanol (Alcohol), Blood, Med <3 mg/dL; Globulin, Blood 3.7 g/dL (2.2-4.0); Glomerular Filtration Rate >60 (60-); Glucose, Blood 269 mg/dL (70-99); Magnesium, Blood 2.1 mg/dL (1.6-2.4); Sodium, Blood 138 mmol/L (136-145); Total Protein, Blood 7.1 g/dL (6.4-8.2)
== END 2021-03-14 02:35 | disposition home or self-care (01) ==
LOC: ER 00:38
PROVIDERS: Emergency Medicine
DX: G40.909 Epilepsy, unspecified, not intractable, without status epilepticus (principal); I10 Essential (primary) hypertension; E11.9 Type 2 diabetes mellitus without complications
CPT/HCPCS: 36415; 80053; 83735; 85025; 99284; G0480

== ENCOUNTER 2021-03-30 16:45 | Emergency (ER) | payer OTHER ==
[~2021-03-30] VITALS: Ht 170.2 cm; Wt 123.4 kg
[2021-03-30 17:57] LABS: BASOPHILS ABSOLUTE AUTO 0.05 K/mm3 (0.00-0.23); BASOPHILS PERCENT AUTO 1 % (0-2); EOSINOPHILS ABSOLUTE AUTO 0.22 K/mm3 (0.00-0.68); EOSINOPHILS PERCENT AUTO 3 % (0-6); Hematocrit 36.6 % (37.0-53.0); Hemoglobin 13.1 g/dL (13.5-17.5); IMMATURE GRAN ABSOLUTE AUTO 0.03 K/mm3 (0.00-0.10); IMMATURE GRAN PERCENT AUTO 0 % (0-1); LYMPHOCYTES ABSOLUTE AUTO 2.62 K/mm3 (0.84-5.20); LYMPHOCYTES PERCENT AUTO 36 % (21-46); MONOCYTES ABSOLUTE AUTO 0.46 K/mm3 (0.16-1.47); MONOCYTES PERCENT AUTO 6 % (4-13); Mean Corpuscular HGB Conc 35.8 g/dL (31.5-36.5); Mean Corpuscular Volume 84 fL (80-100); Mean Platelet Volume 11.7 fL (9.1-12.4); NEUTROPHILS ABSOLUTE AUTO 3.82 K/mm3 (1.96-9.15); NEUTROPHILS PERCENT AUTO 53 % (41-73); Platelet Count 240 K/mm3 (150-400); RDW Coefficient Variation 12.3 % (11.7-14.2); RDW Standard Deviation 37.2 fL (35.1-46.3); Red Blood Cell Count 4.37 M/mm3 (4.30-5.90)
[2021-03-30 18:36] LABS: Anion Gap 8 mmol/L (6-16); Blood Urea Nitrogen 12 mg/dL (8-24); Bun/Creatinine Ratio 17.3 (12.0-20.0); CO2, Blood 26 mmol/L (21-32); Calcium, Blood 8.8 mg/dL (8.5-10.1); Chloride, Blood 106 mmol/L (98-108); Creatinine, Blood 0.69 mg/dL (0.60-1.20); Glomerular Filtration Rate >60 (60-); Glucose, Blood 218 mg/dL (70-99); Potassium, Blood 4.1 mmol/L (3.5-5.5); Sodium, Blood 140 mmol/L (136-145)
== END 2021-03-30 19:51 | disposition home or self-care (01) ==
LOC: ER 16:45
PROVIDERS: Student in an Organized Health Care Education/Training Program
DX: G40.A09 Absence epileptic syndrome, not intractable, without status epilepticus (principal); I10 Essential (primary) hypertension; E11.9 Type 2 diabetes mellitus without complications; F17.200 Nicotine dependence, unspecified, uncomplicated; Z79.899 Other long term (current) drug therapy; Z79.4 Long term (current) use of insulin
CPT/HCPCS: 80048; 80177; 80183; 85025; 93005; 93010; 99284-25; A9270

== ENCOUNTER 2021-06-21 13:45 | Emergency (ER) | payer OTHER | END 2021-06-21 14:32 | disposition left against medical advice (07) | LOC: ER 13:45 | DX: Z53.21 Procedure and treatment not carried out due to patient leaving prior to being seen by health care provider (principal) ==

== ENCOUNTER 2021-07-29 21:41 | Emergency (ER) | payer OTHER ==
[~2021-07-29] VITALS: Ht 170.2 cm; Wt 123.8 kg
== END 2021-07-29 23:50 | disposition home or self-care (01) ==
LOC: ER 21:41
DX: G40.909 Epilepsy, unspecified, not intractable, without status epilepticus (principal); S06.9X9A Unspecified intracranial injury with loss of consciousness of unspecified duration, initial encounter; G44.309 Post-traumatic headache, unspecified, not intractable; E11.9 Type 2 diabetes mellitus without complications; I10 Essential (primary) hypertension; Z79.4 Long term (current) use of insulin; X58.XXXA Exposure to other specified factors, initial encounter
CPT/HCPCS: 70450; 82947

== ENCOUNTER 2021-08-09 15:27 | Emergency (ER) | payer OTHER ==
[~2021-08-09] VITALS: Ht 172.7 cm; Wt 124.7 kg
[2021-08-09 16:22] LABS: BASOPHILS ABSOLUTE AUTO 0.07 K/mm3 (0.00-0.23); BASOPHILS PERCENT AUTO 1 % (0-2); EOSINOPHILS ABSOLUTE AUTO 0.23 K/mm3 (0.00-0.68); EOSINOPHILS PERCENT AUTO 3 % (0-6); Hematocrit 41.7 % (37.0-53.0); Hemoglobin 15.1 g/dL (13.5-17.5); IMMATURE GRAN ABSOLUTE AUTO 0.06 K/mm3 (0.00-0.10); IMMATURE GRAN PERCENT AUTO 1 % (0-1); LYMPHOCYTES ABSOLUTE AUTO 2.85 K/mm3 (0.84-5.20); LYMPHOCYTES PERCENT AUTO 41 % (21-46); MONOCYTES ABSOLUTE AUTO 0.43 K/mm3 (0.16-1.47); MONOCYTES PERCENT AUTO 6 % (4-13); Mean Corpuscular HGB 29.9 pg (26.0-34.0); Mean Corpuscular HGB Conc 36.2 g/dL (31.5-36.5); Mean Corpuscular Volume 83 fL (80-100); Mean Platelet Volume 10.2 fL (9.1-12.4); NEUTROPHILS PERCENT AUTO 48 % (41-73); Platelet Count 277 K/mm3 (150-400); RDW Coefficient Variation 11.7 % (11.7-14.2); RDW Standard Deviation 34.7 fL (35.1-46.3); Red Blood Cell Count 5.05 M/mm3 (4.30-5.90); White Blood Cell Count 7.04 K/mm3 (4.00-11.30)
[2021-08-09 17:00] LABS: Alanine Aminotransfer (ALT/SGP 101 U/L (12-78); Albumin, Blood 3.4 g/dL (3.4-5.0); Albumin/Globulin Ratio 0.8 (0.8-1.8); Alk Phos 74 U/L (50-136); Anion Gap 6 mmol/L (6-16); Aspartate Aminotrans (AST/SGOT 55 U/L (12-37); Bilirubin, Total 0.3 mg/dL (0.1-1.0); Blood Urea Nitrogen 11 mg/dL (8-24); Bun/Creatinine Ratio 15.9 (12.0-20.0); CO2, Blood 24 mmol/L (21-32); Calcium, Blood 8.7 mg/dL (8.5-10.1); Chloride, Blood 103 mmol/L (98-108); Creatinine, Blood 0.69 mg/dL (0.60-1.20); Globulin, Blood 4.4 g/dL (2.2-4.0); Glomerular Filtration Rate >60 (60-); Glucose, Blood 377 mg/dL (70-99); Sodium, Blood 133 mmol/L (136-145); Total Protein, Blood 7.8 g/dL (6.4-8.2)
[2021-08-09] MEDS ORDERED: ROWEEPRA PO (18:31)
== END 2021-08-09 18:45 | disposition home or self-care (01) ==
LOC: ER 15:27
PROVIDERS: Physician Assistant
DX: G40.909 Epilepsy, unspecified, not intractable, without status epilepticus (principal); Z91.14 Patient's other noncompliance with medication regimen; I10 Essential (primary) hypertension; E11.9 Type 2 diabetes mellitus without complications; Z79.4 Long term (current) use of insulin; Z79.899 Other long term (current) drug therapy; J45.909 Unspecified asthma, uncomplicated
CPT/HCPCS: 36415; 80053; 85025; 96365; 99284-25; A9270; J1953

== ENCOUNTER 2021-10-14 20:27 | Emergency (ER) | payer OTHER ==
[~2021-10-14] VITALS: Ht 177.8 cm; Wt 90.7 kg
[~2021-10-14 20:27] MED LIST changes: +ROWEEPRA PO
[2021-10-14 21:47] LABS: BASOPHILS ABSOLUTE AUTO 0.05 K/mm3 (0.00-0.23); BASOPHILS PERCENT AUTO 1 % (0-2); EOSINOPHILS ABSOLUTE AUTO 0.23 K/mm3 (0.00-0.68); EOSINOPHILS PERCENT AUTO 3 % (0-6); Hematocrit 42.8 % (37.0-53.0); Hemoglobin 14.9 g/dL (13.5-17.5); IMMATURE GRAN ABSOLUTE AUTO 0.03 K/mm3 (0.00-0.10); IMMATURE GRAN PERCENT AUTO 0 % (0-1); LYMPHOCYTES ABSOLUTE AUTO 3.49 K/mm3 (0.84-5.20); LYMPHOCYTES PERCENT AUTO 43 % (21-46); MONOCYTES PERCENT AUTO 7 % (4-13); Mean Corpuscular HGB 29.6 pg (26.0-34.0); Mean Corpuscular HGB Conc 34.8 g/dL (31.5-36.5); Mean Corpuscular Volume 85 fL (80-100); Mean Platelet Volume 10.4 fL (9.1-12.4); NEUTROPHILS PERCENT AUTO 46 % (41-73); Platelet Count 267 K/mm3 (150-400); RDW Coefficient Variation 11.6 % (11.7-14.2); RDW Standard Deviation 35.2 fL (35.1-46.3); Red Blood Cell Count 5.03 M/mm3 (4.30-5.90)
[2021-10-14 21:54] LABS: Source, Urine Clean Catch
[2021-10-14 21:57] LABS: Bilirubin, Urine Neg (Neg); Blood, Urine Neg (Neg); Glucose Qualitative, Urine 4+ (Neg); Ketones, Urine Neg (Neg); Leukocyte Esterase, Urine Neg (Neg); Nitrite, Urine Neg (Neg); Protein, Urine Neg (Neg); Specific Gravity, Urine 1.015 (1.003-1.022); Urobilinogen, Urine NORM (Normal)
[2021-10-14 22:02] LABS: Alanine Aminotransfer (ALT/SGP 62 U/L (12-78); Albumin, Blood 3.8 g/dL (3.4-5.0); Albumin/Globulin Ratio 0.8 (0.8-1.8); Alk Phos 75 U/L (50-136); Anion Gap 5 mmol/L (6-16); Aspartate Aminotrans (AST/SGOT 22 U/L (12-37); Bilirubin, Total 0.3 mg/dL (0.1-1.0); Blood Urea Nitrogen 11 mg/dL (8-24); CO2, Blood 31 mmol/L (21-32); Calcium, Blood 9.3 mg/dL (8.5-10.1); Chloride, Blood 101 mmol/L (98-108); Creatinine, Blood 0.79 mg/dL (0.60-1.20); Globulin, Blood 4.5 g/dL (2.2-4.0); Glomerular Filtration Rate >60 (60-); Glucose, Blood 222 mg/dL (70-99); Magnesium, Blood 2.2 mg/dL (1.6-2.4); Potassium, Blood 4.4 mmol/L (3.5-5.5); Sodium, Blood 137 mmol/L (136-145); Total Protein, Blood 8.3 g/dL (6.4-8.2)
[2021-10-14 22:06] LABS: Appearance, Urine Clear (Clear); Color, Urine Yellow (P-Yellow)
[2021-10-14 23:01] LABS: Influenza A, PCR NEGATIVE (NEGATIVE); Influenza B, PCR NEGATIVE (NEGATIVE); Resp Syncytial Virus, PCR NEGATIVE (NEGATIVE); SARS-Cov-2 (COVID-19) PCR, MMC NEGATIVE (NEGATIVE)
== END 2021-10-14 23:25 | disposition home or self-care (01) ==
LOC: ER 20:27
PROVIDERS: Student in an Organized Health Care Education/Training Program
DX: G40.909 Epilepsy, unspecified, not intractable, without status epilepticus (principal); R40.4 Transient alteration of awareness; Z20.822 Contact with and (suspected) exposure to COVID-19; I10 Essential (primary) hypertension; F17.200 Nicotine dependence, unspecified, uncomplicated; Z79.899 Other long term (current) drug therapy
CPT/HCPCS: 0241U; 70450; 71046; 80053; 81003; 83735; 85025; 93005; 93010; 96365; 99285-25; A9270; J1953

== ENCOUNTER 2021-10-21 18:31 | Observation (INO) | payer OTHER ==
[~2021-10-21] VITALS: Ht 177.8 cm; Wt 122.0 kg
[2021-10-21 18:52] LABS: BASOPHILS ABSOLUTE AUTO 0.04 K/mm3 (0.00-0.23); BASOPHILS PERCENT AUTO 1 % (0-2); EOSINOPHILS ABSOLUTE AUTO 0.19 K/mm3 (0.00-0.68); EOSINOPHILS PERCENT AUTO 2 % (0-6); Hematocrit 39.9 % (37.0-53.0); Hemoglobin 14.2 g/dL (13.5-17.5); IMMATURE GRAN ABSOLUTE AUTO 0.06 K/mm3 (0.00-0.10); IMMATURE GRAN PERCENT AUTO 1 % (0-1); LYMPHOCYTES ABSOLUTE AUTO 2.61 K/mm3 (0.84-5.20); LYMPHOCYTES PERCENT AUTO 34 % (21-46); MONOCYTES ABSOLUTE AUTO 0.59 K/mm3 (0.16-1.47); MONOCYTES PERCENT AUTO 8 % (4-13); Mean Corpuscular HGB 29.7 pg (26.0-34.0); Mean Corpuscular HGB Conc 35.6 g/dL (31.5-36.5); Mean Corpuscular Volume 84 fL (80-100); Mean Platelet Volume 9.9 fL (9.1-12.4); NEUTROPHILS ABSOLUTE AUTO 4.27 K/mm3 (1.96-9.15); NEUTROPHILS PERCENT AUTO 55 % (41-73); Platelet Count 245 K/mm3 (150-400); RDW Coefficient Variation 11.4 % (11.7-14.2); RDW Standard Deviation 34.6 fL (35.1-46.3); Red Blood Cell Count 4.78 M/mm3 (4.30-5.90); White Blood Cell Count 7.76 K/mm3 (4.00-11.30)
[2021-10-21 19:20] LABS: Alanine Aminotransfer (ALT/SGP 50 U/L (12-78); Albumin, Blood 3.5 g/dL (3.4-5.0); Albumin/Globulin Ratio 0.9 (0.8-1.8); Alk Phos 71 U/L (50-136); Anion Gap 6 mmol/L (6-16); Aspartate Aminotrans (AST/SGOT 19 U/L (12-37); Bilirubin, Total 0.2 mg/dL (0.1-1.0); Blood Urea Nitrogen 16 mg/dL (8-24); Bun/Creatinine Ratio 18.1 (12.0-20.0); CO2, Blood 27 mmol/L (21-32); Calcium, Blood 9.1 mg/dL (8.5-10.1); Chloride, Blood 103 mmol/L (98-108); Creatinine, Blood 0.88 mg/dL (0.60-1.20); Globulin, Blood 4.1 g/dL (2.2-4.0); Glomerular Filtration Rate >60 (60-); Glucose, Blood 385 mg/dL (70-99); Potassium, Blood 4.4 mmol/L (3.5-5.5); Sodium, Blood 136 mmol/L (136-145); Total Protein, Blood 7.6 g/dL (6.4-8.2)
[2021-10-21 19:31] LABS: Source, Urine Clean Catch
[2021-10-21 19:36] LABS: Appearance, Urine Clear (Clear); Bilirubin, Urine Neg (Neg); Blood, Urine Neg (Neg); Color, Urine Yellow (P-Yellow); Glucose Qualitative, Urine 4+ (Neg); Ketones, Urine Neg (Neg); Leukocyte Esterase, Urine Neg (Neg); Nitrite, Urine Neg (Neg); Protein, Urine Neg (Neg); Urobilinogen, Urine NORM (Normal)
[2021-10-21 19:41] LABS: Acetaminophen, Random <2.0 ug/mL (10.0-30.0); Ethanol (Alcohol), Blood, Med <3 mg/dL
[2021-10-21 19:48] LABS: U Amphetamine Screen Not Detected; U Barbituate Screen Not Detected; U Benzodiazapine Screen Not Detected; U Buprenorphine Screen Not Detected; U Cannabinoids Screen Not Detected; U Cocaine Screen Not Detected; U Methadone Screen Not Detected; U Methamphetamine Screen Not Detected; U Opiates Screen Not Detected; U Oxycodone Screen Not Detected; U Phencyclidine Screen Not Detected; U Propoxyphene Screen Not Detected
[2021-10-21 22:08] LABS: Influenza A, PCR NEGATIVE (NEGATIVE); Influenza B, PCR NEGATIVE (NEGATIVE); Resp Syncytial Virus, PCR NEGATIVE (NEGATIVE); SARS-Cov-2 (COVID-19) PCR, MMC NEGATIVE (NEGATIVE)
[2022-02-05] MEDS ORDERED: BENZ100A PO (18:18)
[2022-04-13] MEDS ORDERED: OMEP20ER PO (23:54)
== END 2021-10-22 17:04 | disposition home or self-care (01) ==
LOC: ER 18:31 → EOR 18:32
PROVIDERS: ADMIT Student in an Organized Health Care Education/Training Program
DX: F33.9 Major depressive disorder, recurrent, unspecified (principal); G40.909 Epilepsy, unspecified, not intractable, without status epilepticus; I10 Essential (primary) hypertension; E11.65 Type 2 diabetes mellitus with hyperglycemia; E66.9 Obesity, unspecified; J45.909 Unspecified asthma, uncomplicated; F17.290 Nicotine dependence, other tobacco product, uncomplicated; Z87.820 Personal history of traumatic brain injury; Z79.4 Long term (current) use of insulin; Z20.822 Contact with and (suspected) exposure to COVID-19; Z68.38 Body mass index [BMI] 38.0-38.9, adult
CPT/HCPCS: 0241U; 36415; 80053; 81003; 82010; 82947; 85025; 99285-25; A9270; G0378; G0480; J1815; J7030

== ENCOUNTER 2021-11-10 18:00 | Emergency (ER) | payer OTHER ==
[~2021-11-10] VITALS: Ht 182.9 cm; Wt 117.9 kg
[2021-11-10 18:48] LABS: BASOPHILS ABSOLUTE AUTO 0.06 K/mm3 (0.00-0.23); BASOPHILS PERCENT AUTO 1 % (0-2); EOSINOPHILS PERCENT AUTO 1 % (0-6); Hematocrit 40.1 % (37.0-53.0); Hemoglobin 14.2 g/dL (13.5-17.5); IMMATURE GRAN ABSOLUTE AUTO 0.08 K/mm3 (0.00-0.10); IMMATURE GRAN PERCENT AUTO 1 % (0-1); LYMPHOCYTES ABSOLUTE AUTO 2.02 K/mm3 (0.84-5.20); LYMPHOCYTES PERCENT AUTO 19 % (21-46); MONOCYTES ABSOLUTE AUTO 0.69 K/mm3 (0.16-1.47); MONOCYTES PERCENT AUTO 7 % (4-13); Mean Corpuscular HGB 29.9 pg (26.0-34.0); Mean Corpuscular HGB Conc 35.4 g/dL (31.5-36.5); Mean Corpuscular Volume 84 fL (80-100); NEUTROPHILS ABSOLUTE AUTO 7.57 K/mm3 (1.96-9.15); NEUTROPHILS PERCENT AUTO 72 % (41-73); Platelet Count 261 K/mm3 (150-400); RDW Coefficient Variation 11.9 % (11.7-14.2); RDW Standard Deviation 36.1 fL (35.1-46.3); Red Blood Cell Count 4.75 M/mm3 (4.30-5.90); White Blood Cell Count 10.52 K/mm3 (4.00-11.30)
[2021-11-10 19:04] LABS: Alanine Aminotransfer (ALT/SGP 45 U/L (12-78); Albumin, Blood 3.7 g/dL (3.4-5.0); Albumin/Globulin Ratio 0.8 (0.8-1.8); Alk Phos 79 U/L (50-136); Anion Gap 4 mmol/L (6-16); Aspartate Aminotrans (AST/SGOT 34 U/L (12-37); Bilirubin, Total 0.4 mg/dL (0.1-1.0); Blood Urea Nitrogen 14 mg/dL (8-24); Bun/Creatinine Ratio 13.6 (12.0-20.0); CO2, Blood 27 mmol/L (21-32); Calcium, Blood 8.9 mg/dL (8.5-10.1); Chloride, Blood 98 mmol/L (98-108); Creatinine, Blood 1.03 mg/dL (0.60-1.20); Globulin, Blood 4.5 g/dL (2.2-4.0); Glomerular Filtration Rate >60 (60-); Glucose, Blood 346 mg/dL (70-99); Potassium, Blood 5.8 mmol/L (3.5-5.5); Sodium, Blood 129 mmol/L (136-145); Total Protein, Blood 8.2 g/dL (6.4-8.2)
[2021-11-10] MEDS ORDERED: Vimpat200 MG (19:38)
[2021-11-10] MEDS ORDERED: DICLOFENAC SOD100 G1 TOP (19:38)
[2021-11-10] MEDS ORDERED: INSULIN GL100 UNIT/2 SC (19:38)
[2021-11-10] MEDS ORDERED: Keppra750 MG PO (19:39)
[2021-11-10] MEDS ORDERED: INSULIN LI100 UNIT/6 SC (19:39)
[2021-11-10] MEDS ORDERED: PRAZ5 PO (19:39)
[2021-11-10] MEDS ORDERED: OXCARBAZEPINE600 M1 PO (19:39)
== END 2021-11-10 22:36 | disposition home or self-care (01) ==
LOC: ER 18:00
PROVIDERS: Emergency Medicine
DX: G40.909 Epilepsy, unspecified, not intractable, without status epilepticus (principal); E11.9 Type 2 diabetes mellitus without complications; F17.200 Nicotine dependence, unspecified, uncomplicated; I10 Essential (primary) hypertension; Z79.4 Long term (current) use of insulin; Z79.899 Other long term (current) drug therapy
CPT/HCPCS: 36415; 80053; 82947; 85025; 93005; 93010; 94640; 94664; 99284-25

== ENCOUNTER 2021-11-16 15:43 | Emergency (ER) | payer OTHER ==
[~2021-11-16] VITALS: Ht 172.7 cm; Wt 124.7 kg
[~2021-11-16 15:43] MED LIST changes: +DICLOFENAC SOD100 G1 TOP; +INSULIN GL100 UNIT/2 SC; +INSULIN LI100 UNIT/6 SC; +OXCARBAZEPINE600 M1 PO; +Vimpat200 MG
[2021-11-16 16:15] LABS: BASOPHILS ABSOLUTE AUTO 0.04 K/mm3 (0.00-0.23); BASOPHILS PERCENT AUTO 1 % (0-2); EOSINOPHILS ABSOLUTE AUTO 0.21 K/mm3 (0.00-0.68); EOSINOPHILS PERCENT AUTO 3 % (0-6); Hemoglobin 14.1 g/dL (13.5-17.5); IMMATURE GRAN ABSOLUTE AUTO 0.06 K/mm3 (0.00-0.10); IMMATURE GRAN PERCENT AUTO 1 % (0-1); LYMPHOCYTES ABSOLUTE AUTO 3.46 K/mm3 (0.84-5.20); LYMPHOCYTES PERCENT AUTO 42 % (21-46); MONOCYTES ABSOLUTE AUTO 0.46 K/mm3 (0.16-1.47); MONOCYTES PERCENT AUTO 6 % (4-13); Mean Corpuscular HGB 29.6 pg (26.0-34.0); Mean Corpuscular HGB Conc 35.3 g/dL (31.5-36.5); Mean Corpuscular Volume 84 fL (80-100); Mean Platelet Volume 9.5 fL (9.1-12.4); NEUTROPHILS ABSOLUTE AUTO 4.02 K/mm3 (1.96-9.15); NEUTROPHILS PERCENT AUTO 49 % (41-73); Platelet Count 315 K/mm3 (150-400); RDW Coefficient Variation 11.5 % (11.7-14.2); RDW Standard Deviation 35.2 fL (35.1-46.3); Red Blood Cell Count 4.77 M/mm3 (4.30-5.90); White Blood Cell Count 8.25 K/mm3 (4.00-11.30)
[2021-11-16 16:40] LABS: Alanine Aminotransfer (ALT/SGP 51 U/L (12-78); Albumin, Blood 3.9 g/dL (3.4-5.0); Albumin/Globulin Ratio 0.9 (0.8-1.8); Alk Phos 77 U/L (50-136); Anion Gap 0 mmol/L (6-16); Aspartate Aminotrans (AST/SGOT 20 U/L (12-37); Bilirubin, Total 0.2 mg/dL (0.1-1.0); Blood Urea Nitrogen 10 mg/dL (8-24); Bun/Creatinine Ratio 11.9 (12.0-20.0); CO2, Blood 32 mmol/L (21-32); Calcium, Blood 9.5 mg/dL (8.5-10.1); Chloride, Blood 103 mmol/L (98-108); Creatinine, Blood 0.84 mg/dL (0.60-1.20); Globulin, Blood 4.2 g/dL (2.2-4.0); Glomerular Filtration Rate >60 (60-); Glucose, Blood 224 mg/dL (70-99); Potassium, Blood 4.6 mmol/L (3.5-5.5); Sodium, Blood 135 mmol/L (136-145); Total Protein, Blood 8.1 g/dL (6.4-8.2)
[2021-11-16 18:27] LABS: Source, Urine Clean Catch
[2021-11-16 18:29] LABS: Appearance, Urine Clear (Clear); Bilirubin, Urine Neg (Neg); Blood, Urine Neg (Neg); Color, Urine Yellow (P-Yellow); Glucose Qualitative, Urine 4+ (Neg); Ketones, Urine Neg (Neg); Leukocyte Esterase, Urine Neg (Neg); Nitrite, Urine Neg (Neg); Protein, Urine Neg (Neg); Urobilinogen, Urine NORM (Normal)
[2021-11-16] MEDS ORDERED: OXCARBAZEPINE600 M1 PO (19:08)
[2021-11-16] MEDS ORDERED: Diastat2.5 MG PR (19:14)
[2021-11-16 19:16] LABS: Influenza A, PCR NEGATIVE (NEGATIVE); Influenza B, PCR NEGATIVE (NEGATIVE); Resp Syncytial Virus, PCR NEGATIVE (NEGATIVE); SARS-Cov-2 (COVID-19) PCR, MMC NEGATIVE (NEGATIVE)
== END 2021-11-16 19:38 | disposition home or self-care (01) ==
LOC: ER 15:43
PROVIDERS: Physician Assistant
DX: G40.909 Epilepsy, unspecified, not intractable, without status epilepticus (principal); Z79.899 Other long term (current) drug therapy; Z79.4 Long term (current) use of insulin; I10 Essential (primary) hypertension; J45.909 Unspecified asthma, uncomplicated; E11.9 Type 2 diabetes mellitus without complications; F43.10 Post-traumatic stress disorder, unspecified; Z87.891 Personal history of nicotine dependence
CPT/HCPCS: 0241U; 36415; 71045; 80053; 81003; 82947; 85025; 96374; 96375; 99284-25; A9270; J1200; J2060; J7030; Q2009

== ENCOUNTER 2021-11-28 20:32 | Emergency (ER) | payer OTHER ==
[~2021-11-28] VITALS: Ht 172.7 cm; Wt 117.9 kg
[~2021-11-28 20:32] MED LIST changes: +Diastat2.5 MG PR
[2021-11-28] MEDS ORDERED: Keppra750 MG PO (21:27)
[2021-11-28] MEDS ORDERED: OXCARBAZEPINE PO (21:27)
[2021-11-28] MEDS ORDERED: PRAZ5 PO (21:28)
== END 2021-11-28 22:30 | disposition home or self-care (01) ==
LOC: ER 20:32
DX: S06.0X0A Concussion without loss of consciousness, initial encounter (principal); W01.10XA Fall on same level from slipping, tripping and stumbling with subsequent striking against unspecified object, initial encounter; Z79.899 Other long term (current) drug therapy; Z79.4 Long term (current) use of insulin; G40.909 Epilepsy, unspecified, not intractable, without status epilepticus; I10 Essential (primary) hypertension; J45.909 Unspecified asthma, uncomplicated; E11.9 Type 2 diabetes mellitus without complications; F43.10 Post-traumatic stress disorder, unspecified
CPT/HCPCS: 96372; 99283-25; J1885

== ENCOUNTER 2021-12-23 00:45 | Emergency (ER) | payer OTHER ==
[~2021-12-23 00:45] MED LIST changes: +OXCARBAZEPINE PO
== END 2021-12-23 01:42 | disposition home or self-care (01) ==
LOC: ER 00:45
DX: K22.89 Other specified disease of esophagus (principal); I10 Essential (primary) hypertension; E11.9 Type 2 diabetes mellitus without complications; G40.909 Epilepsy, unspecified, not intractable, without status epilepticus
CPT/HCPCS: 99283

== ENCOUNTER 2022-01-25 22:13 | Emergency (ER) | payer OTHER ==
[~2022-01-25] VITALS: Ht 170.2 cm; Wt 121.1 kg
[2022-01-26] MEDS ORDERED: ALBU90OI INH (00:54)
== END 2022-01-26 01:04 | disposition home or self-care (01) ==
LOC: ER 22:13
DX: J45.901 Unspecified asthma with (acute) exacerbation (principal); B34.9 Viral infection, unspecified; G40.909 Epilepsy, unspecified, not intractable, without status epilepticus; I10 Essential (primary) hypertension; J45.909 Unspecified asthma, uncomplicated; E11.9 Type 2 diabetes mellitus without complications; Z79.899 Other long term (current) drug therapy; Z79.4 Long term (current) use of insulin
CPT/HCPCS: 71046

== ENCOUNTER 2022-02-01 20:53 | Emergency (ER) | payer OTHER ==
[~2022-02-01] VITALS: Ht 170.2 cm; Wt 121.6 kg
== END 2022-02-01 22:20 | disposition left against medical advice (07) ==
LOC: ER 20:53
DX: R53.1 Weakness (principal); Z53.21 Procedure and treatment not carried out due to patient leaving prior to being seen by health care provider
CPT/HCPCS: 36415; 70450; 72125

== ENCOUNTER 2022-02-09 22:38 | Emergency (ER) | payer OTHER ==
[~2022-02-09] VITALS: Ht 172.7 cm; Wt 123.8 kg
[~2022-02-09 22:38] MED LIST changes: +BENZ100A PO
[2022-02-09 23:54] LABS: BASOPHILS ABSOLUTE AUTO 0.04 K/mm3 (0.00-0.23); BASOPHILS PERCENT AUTO 1 % (0-2); EOSINOPHILS ABSOLUTE AUTO 0.18 K/mm3 (0.00-0.68); EOSINOPHILS PERCENT AUTO 2 % (0-6); Hematocrit 37.3 % (37.0-53.0); Hemoglobin 13.5 g/dL (13.5-17.5); IMMATURE GRAN ABSOLUTE AUTO 0.04 K/mm3 (0.00-0.10); IMMATURE GRAN PERCENT AUTO 1 % (0-1); LYMPHOCYTES PERCENT AUTO 38 % (21-46); MONOCYTES ABSOLUTE AUTO 0.54 K/mm3 (0.16-1.47); MONOCYTES PERCENT AUTO 7 % (4-13); Mean Corpuscular HGB 30.3 pg (26.0-34.0); Mean Corpuscular HGB Conc 36.2 g/dL (31.5-36.5); Mean Corpuscular Volume 84 fL (80-100); Mean Platelet Volume 10.3 fL (9.1-12.4); NEUTROPHILS ABSOLUTE AUTO 4.24 K/mm3 (1.96-9.15); NEUTROPHILS PERCENT AUTO 52 % (41-73); Platelet Count 264 K/mm3 (150-400); RDW Coefficient Variation 11.8 % (11.7-14.2); RDW Standard Deviation 35.8 fL (35.1-46.3); Red Blood Cell Count 4.45 M/mm3 (4.30-5.90); White Blood Cell Count 8.14 K/mm3 (4.00-11.30)
[2022-02-10 00:05] LABS: Calcium, Blood 8.8 mg/dL (8.5-10.1); Creatinine, Blood 0.69 mg/dL (0.60-1.20); Magnesium, Blood 2.2 mg/dL (1.6-2.4); Potassium, Blood 4.2 mmol/L (3.5-5.5)
[2022-02-10] MEDS ORDERED: PRED20 PO (02:28)
[2022-02-10] MEDS ORDERED: HUMALOG KW100 UNIT/1 SQ (11:30)
[2022-02-10] MEDS ORDERED: ALBU90OI INH (11:30)
[2022-02-10] MEDS ORDERED: ASPI81CH PO (11:30)
[2022-02-10] MEDS ORDERED: ATOR40TA PO (11:31)
[2022-02-10] MEDS ORDERED: INSULANI SC ×2 (11:31)
[2022-02-10] MEDS ORDERED: CYCL10 PO (11:31)
[2022-02-10] MEDS ORDERED: LEVE500 PO (11:32)
[2022-02-10] MEDS ORDERED: LISI20 PO (11:32)
[2022-02-10] MEDS ORDERED: OMEP20ER PO (11:32)
[2022-02-10] MEDS ORDERED: TRILEPTAL600 M1 PO (11:43)
[2022-02-10] MEDS ORDERED: Prazosin HCl5 MG PO (11:43)
[2022-02-10] MEDS ORDERED: PRAZ2 PO (11:44)
[2022-02-10] MEDS ORDERED: LACO50TA2 PO (11:44)
[2022-02-10] MEDS ORDERED: SERT100 PO (11:44)
== END 2022-02-10 03:00 | disposition home or self-care (01) ==
LOC: ER 22:38
PROVIDERS: Student in an Organized Health Care Education/Training Program
DX: J45.901 Unspecified asthma with (acute) exacerbation (principal); E11.65 Type 2 diabetes mellitus with hyperglycemia; I10 Essential (primary) hypertension; Z79.899 Other long term (current) drug therapy; Z79.4 Long term (current) use of insulin; Z87.891 Personal history of nicotine dependence
CPT/HCPCS: 36415; 71046; 80048; 83735; 85025; 93005; 93010; 94644; 94664; J3475; J7512

== ENCOUNTER 2022-02-14 20:45 | Emergency (ER) | payer OTHER ==
[~2022-02-14] VITALS: Ht 172.7 cm; Wt 125.2 kg
[~2022-02-14 20:45] MED LIST changes: +ASPI81CH PO; +ATOR40TA PO; +HUMALOG KW100 UNIT/1 SQ; +INSULANI SC; +LEVE500 PO; +OMEP20ER PO; +PRAZ2 PO; +PRED20 PO; +Prazosin HCl5 MG PO; +TRILEPTAL600 M1 PO
[2022-02-14 23:11] LABS: BASOPHILS ABSOLUTE AUTO 0.05 K/mm3 (0.00-0.23); BASOPHILS PERCENT AUTO 1 % (0-2); EOSINOPHILS ABSOLUTE AUTO 0.07 K/mm3 (0.00-0.68); EOSINOPHILS PERCENT AUTO 1 % (0-6); Hematocrit 42.1 % (37.0-53.0); Hemoglobin 14.8 g/dL (13.5-17.5); IMMATURE GRAN ABSOLUTE AUTO 0.09 K/mm3 (0.00-0.10); IMMATURE GRAN PERCENT AUTO 1 % (0-1); LYMPHOCYTES ABSOLUTE AUTO 1.25 K/mm3 (0.84-5.20); LYMPHOCYTES PERCENT AUTO 19 % (21-46); MONOCYTES PERCENT AUTO 12 % (4-13); Mean Corpuscular HGB Conc 35.2 g/dL (31.5-36.5); Mean Corpuscular Volume 85 fL (80-100); Mean Platelet Volume 9.9 fL (9.1-12.4); NEUTROPHILS ABSOLUTE AUTO 4.31 K/mm3 (1.96-9.15); NEUTROPHILS PERCENT AUTO 66 % (41-73); Platelet Count 262 K/mm3 (150-400); RDW Coefficient Variation 11.9 % (11.7-14.2); RDW Standard Deviation 37.1 fL (35.1-46.3); Red Blood Cell Count 4.94 M/mm3 (4.30-5.90); White Blood Cell Count 6.57 K/mm3 (4.00-11.30)
[2022-02-14 23:29] LABS: Albumin, Blood 4.1 g/dL (3.4-5.0); Albumin/Globulin Ratio 0.9 (0.8-1.8); Bilirubin, Total 0.2 mg/dL (0.1-1.0); Bun/Creatinine Ratio 10.9 (12.0-20.0); Calcium, Blood 9.7 mg/dL (8.5-10.1); Creatinine, Blood 0.82 mg/dL (0.60-1.20); Globulin, Blood 4.4 g/dL (2.2-4.0); Potassium, Blood 4.6 mmol/L (3.5-5.5); Total Protein, Blood 8.5 g/dL (6.4-8.2)
[2022-02-15 00:14] LABS: Source, Urine Clean Catch
[2022-02-15 00:17] LABS: Bilirubin, Urine Neg (Neg); Blood, Urine Neg (Neg); Glucose Qualitative, Urine 4+ (Neg); Ketones, Urine Neg (Neg); Leukocyte Esterase, Urine Neg (Neg); Nitrite, Urine Neg (Neg); Protein, Urine Neg (Neg); Specific Gravity, Urine 1.015 (1.003-1.022); Urobilinogen, Urine NORM (Normal)
[2022-02-15 00:21] LABS: Appearance, Urine Clear (Clear); Color, Urine Yellow (P-Yellow)
[2022-02-15] MEDS ORDERED: Prednisone50 MG PO (00:24)
[2022-04-13] MEDS ORDERED: OMEP20ER PO (23:54)
== END 2022-02-15 00:58 | disposition home or self-care (01) ==
LOC: ER 20:45
PROVIDERS: Emergency Medicine; Physician Assistant
DX: J45.909 Unspecified asthma, uncomplicated (principal); I10 Essential (primary) hypertension; E11.9 Type 2 diabetes mellitus without complications; Z79.4 Long term (current) use of insulin; Z79.899 Other long term (current) drug therapy
CPT/HCPCS: 36415; 71045; 80053; 81003; 84484; 85025; 93005; 93010; 94640; 99284-25; J7512

== ENCOUNTER 2022-05-13 19:46 | Emergency (ER) | payer OTHER ==
[~2022-05-13] VITALS: Ht 172.7 cm; Wt 120.2 kg
[~2022-05-13 19:46] MED LIST changes: +Prednisone50 MG PO
[2022-05-13] MEDS ORDERED: BUDESONIDE-FO10.2 G3 INH (20:28)
== END 2022-05-13 20:45 | disposition home or self-care (01) ==
LOC: ER 19:46
DX: G40.909 Epilepsy, unspecified, not intractable, without status epilepticus (principal); I10 Essential (primary) hypertension; J45.909 Unspecified asthma, uncomplicated; E11.9 Type 2 diabetes mellitus without complications; Z87.891 Personal history of nicotine dependence; Z79.4 Long term (current) use of insulin; Z79.899 Other long term (current) drug therapy; Z79.82 Long term (current) use of aspirin
CPT/HCPCS: 93005; 93010; 99284-25

== ENCOUNTER → 2022-05-24 | Outpatient (CLI) | payer OTHER ==
[~2022-05-24] MED LIST changes: +BUDESONIDE-FO10.2 G3 INH
[2022-05-24 13:16] LABS: BASOPHILS ABSOLUTE AUTO 0.06 K/mm3 (0.00-0.23); BASOPHILS PERCENT AUTO 1 % (0-2); EOSINOPHILS ABSOLUTE AUTO 0.17 K/mm3 (0.00-0.68); EOSINOPHILS PERCENT AUTO 2 % (0-6); Hematocrit 39.6 % (37.0-53.0); Hemoglobin 14.1 g/dL (13.5-17.5); IMMATURE GRAN ABSOLUTE AUTO 0.03 K/mm3 (0.00-0.10); IMMATURE GRAN PERCENT AUTO 0 % (0-1); LYMPHOCYTES ABSOLUTE AUTO 3.05 K/mm3 (0.84-5.20); LYMPHOCYTES PERCENT AUTO 41 % (21-46); MONOCYTES ABSOLUTE AUTO 0.48 K/mm3 (0.16-1.47); MONOCYTES PERCENT AUTO 7 % (4-13); Mean Corpuscular HGB 30.3 pg (26.0-34.0); Mean Corpuscular HGB Conc 35.6 g/dL (31.5-36.5); Mean Corpuscular Volume 85 fL (80-100); Mean Platelet Volume 9.9 fL (9.1-12.4); NEUTROPHILS ABSOLUTE AUTO 3.59 K/mm3 (1.96-9.15); NEUTROPHILS PERCENT AUTO 49 % (41-73); Platelet Count 271 K/mm3 (150-400); RDW Coefficient Variation 11.9 % (11.7-14.2); RDW Standard Deviation 36.2 fL (35.1-46.3); Red Blood Cell Count 4.65 M/mm3 (4.30-5.90); White Blood Cell Count 7.38 K/mm3 (4.00-11.30)
[2022-05-24 13:23] LABS: Bun/Creatinine Ratio 16.3 (12.0-20.0); Calcium, Blood 8.9 mg/dL (8.5-10.1); Creatinine, Blood 0.8 mg/dL (0.60-1.20); Potassium, Blood 4.4 mmol/L (3.5-5.5)
== END ==
LOC: LAB SHORT 13:12 → LAB 13:12
PROVIDERS: Family Medicine
DX: G40.909 Epilepsy, unspecified, not intractable, without status epilepticus (principal)
CPT/HCPCS: 80048; 85025

== ENCOUNTER 2022-12-18 16:41 | Emergency (ER) | payer OTHER ==
[~2022-12-18] VITALS: Ht 172.7 cm; Wt 121.1 kg
[2022-12-18 17:22] LABS: BASOPHILS ABSOLUTE AUTO 0.08 K/mm3 (0.00-0.23); BASOPHILS PERCENT AUTO 1 % (0-2); EOSINOPHILS ABSOLUTE AUTO 0.18 K/mm3 (0.00-0.68); EOSINOPHILS PERCENT AUTO 2 % (0-6); Hematocrit 40.9 % (37.0-53.0); Hemoglobin 14.4 g/dL (13.5-17.5); IMMATURE GRAN ABSOLUTE AUTO 0.03 K/mm3 (0.00-0.10); IMMATURE GRAN PERCENT AUTO 0 % (0-1); LYMPHOCYTES ABSOLUTE AUTO 3.44 K/mm3 (0.84-5.20); LYMPHOCYTES PERCENT AUTO 34 % (21-46); MONOCYTES ABSOLUTE AUTO 0.68 K/mm3 (0.16-1.47); MONOCYTES PERCENT AUTO 7 % (4-13); Mean Corpuscular HGB 29.5 pg (26.0-34.0); Mean Corpuscular HGB Conc 35.2 g/dL (31.5-36.5); Mean Corpuscular Volume 84 fL (80-100); Mean Platelet Volume 10.6 fL (9.1-12.4); NEUTROPHILS ABSOLUTE AUTO 5.76 K/mm3 (1.96-9.15); NEUTROPHILS PERCENT AUTO 57 % (41-73); Platelet Count 287 K/mm3 (150-400); RDW Coefficient Variation 11.7 % (11.7-14.2); RDW Standard Deviation 35.3 fL (35.1-46.3); Red Blood Cell Count 4.88 M/mm3 (4.30-5.90); White Blood Cell Count 10.17 K/mm3 (4.00-11.30)
[2022-12-18 17:53] LABS: Albumin, Blood 3.9 g/dL (3.4-5.0); Bilirubin, Total 0.6 mg/dL (0.1-1.0); Bun/Creatinine Ratio 13.9 (12.0-20.0); Calcium, Blood 9.2 mg/dL (8.5-10.1); Creatinine, Blood 0.94 mg/dL (0.60-1.20); Globulin, Blood 4.1 g/dL (2.2-4.0)
[2022-12-18 20:30] VITALS: BP 150/96
== END 2022-12-18 20:42 | disposition home or self-care (01) ==
LOC: ER 16:41
PROVIDERS: Emergency Medicine
DX: I10 Essential (primary) hypertension (principal); E11.9 Type 2 diabetes mellitus without complications; G40.909 Epilepsy, unspecified, not intractable, without status epilepticus; Z79.4 Long term (current) use of insulin; Z79.82 Long term (current) use of aspirin; Z79.51 Long term (current) use of inhaled steroids; Z79.899 Other long term (current) drug therapy; Z87.891 Personal history of nicotine dependence
CPT/HCPCS: 71045; 80053; 84484; 85025; 93005; 93010; 96374; 99284-25

== ENCOUNTER 2023-01-04 16:38 | Emergency (ER) | payer OTHER ==
[~2023-01-04] VITALS: Ht 172.7 cm; Wt 117.0 kg
[2023-01-04 17:28] VITALS: BP 169/125
== END 2023-01-04 18:20 | disposition home or self-care (01) ==
LOC: ER 16:38
DX: S13.4XXA Sprain of ligaments of cervical spine, initial encounter (principal); I10 Essential (primary) hypertension; E11.9 Type 2 diabetes mellitus without complications; G40.909 Epilepsy, unspecified, not intractable, without status epilepticus; J45.909 Unspecified asthma, uncomplicated; Z79.51 Long term (current) use of inhaled steroids; Z79.82 Long term (current) use of aspirin; Z79.4 Long term (current) use of insulin; Z79.899 Other long term (current) drug therapy; V89.2XXA Person injured in unspecified motor-vehicle accident, traffic, initial encounter
CPT/HCPCS: 99283

== ENCOUNTER 2023-05-08 19:04 | Emergency (ER) | payer OTHER ==
[~2023-05-08] VITALS: Ht 170.2 cm; Wt 114.3 kg
[2023-05-08 20:02] LABS: BASOPHILS ABSOLUTE AUTO 0.06 K/mm3 (0.00-0.23); BASOPHILS PERCENT AUTO 1 % (0-2); EOSINOPHILS ABSOLUTE AUTO 0.18 K/mm3 (0.00-0.68); EOSINOPHILS PERCENT AUTO 2 % (0-6); Hematocrit 41.4 % (37.0-53.0); IMMATURE GRAN ABSOLUTE AUTO 0.05 K/mm3 (0.00-0.10); IMMATURE GRAN PERCENT AUTO 1 % (0-1); LYMPHOCYTES ABSOLUTE AUTO 3.81 K/mm3 (0.84-5.20); LYMPHOCYTES PERCENT AUTO 49 % (21-46); MONOCYTES ABSOLUTE AUTO 0.48 K/mm3 (0.16-1.47); MONOCYTES PERCENT AUTO 6 % (4-13); Mean Corpuscular HGB 29.7 pg (26.0-34.0); Mean Corpuscular HGB Conc 36.2 g/dL (31.5-36.5); Mean Corpuscular Volume 82 fL (80-100); Mean Platelet Volume 10.5 fL (9.1-12.4); NEUTROPHILS ABSOLUTE AUTO 3.19 K/mm3 (1.96-9.15); NEUTROPHILS PERCENT AUTO 41 % (41-73); Platelet Count 267 K/mm3 (150-400); RDW Coefficient Variation 11.5 % (11.7-14.2); RDW Standard Deviation 33.7 fL (35.1-46.3); Red Blood Cell Count 5.05 M/mm3 (4.30-5.90); White Blood Cell Count 7.77 K/mm3 (4.00-11.30)
[2023-05-08 20:24] LABS: Source, Urine Clean Catch
[2023-05-08 20:26] LABS: Bilirubin, Urine Neg (Neg); Blood, Urine Neg (Neg); Glucose Qualitative, Urine 4+ (Neg); Ketones, Urine Neg (Neg); Leukocyte Esterase, Urine Neg (Neg); Nitrite, Urine Neg (Neg); Protein, Urine Neg (Neg); Specific Gravity, Urine 1.015 (1.003-1.022); Urobilinogen, Urine NORM (Normal)
[2023-05-08 20:31] LABS: Appearance, Urine Clear (Clear); Color, Urine Yellow (P-Yellow)
[2023-05-08 20:37] LABS: Albumin, Blood 3.8 g/dL (3.4-5.0); Albumin/Globulin Ratio 0.9 (0.8-1.8); Bilirubin, Total 0.3 mg/dL (0.1-1.0); Bun/Creatinine Ratio 17.8 (12.0-20.0); Calcium, Blood 9.5 mg/dL (8.5-10.1); Creatinine, Blood 0.68 mg/dL (0.60-1.20); Globulin, Blood 4.2 g/dL (2.2-4.0); Potassium, Blood 4.1 mmol/L (3.5-5.5)
[2023-05-08 21:00] VITALS: BP 193/112
[2023-05-08 21:10] LABS: Glucose, Blood 353 mg/dL (70-99)
== END 2023-05-08 22:20 | disposition home or self-care (01) ==
LOC: ER 19:04
PROVIDERS: Emergency Medicine
DX: E11.65 Type 2 diabetes mellitus with hyperglycemia (principal); Z79.899 Other long term (current) drug therapy; Z79.4 Long term (current) use of insulin; Z79.82 Long term (current) use of aspirin; G40.909 Epilepsy, unspecified, not intractable, without status epilepticus; I10 Essential (primary) hypertension; J45.909 Unspecified asthma, uncomplicated; F43.10 Post-traumatic stress disorder, unspecified
CPT/HCPCS: 80053; 81003; 82947; 85025; 93005; 93010; 96360; 99285-25; J1815; J7030

== ENCOUNTER → 2023-05-12 | Outpatient (CLI) | payer OTHER ==
[2023-05-13 07:11] LABS: HIV AB/P24 AG SCREEN Non Reactive (Non Reactive)
== END | disposition home or self-care (01) ==
LOC: LAB SHORT 13:08 → LAB 13:08
PROVIDERS: Family Medicine
DX: Z11.4 Encounter for screening for human immunodeficiency virus [HIV] (principal)
CPT/HCPCS: 87389

== ENCOUNTER 2023-05-31 11:38 | Emergency (ER) | payer OTHER ==
[~2023-05-31] VITALS: Ht 170.2 cm; Wt 115.7 kg
[2023-05-31] MEDS ORDERED: Prednisone20 MG PO (14:09)
[2023-05-31 14:19] VITALS: BP 146/78
== END 2023-05-31 14:19 | disposition home or self-care (01) ==
LOC: ER 11:38
DX: J45.901 Unspecified asthma with (acute) exacerbation (principal); G40.909 Epilepsy, unspecified, not intractable, without status epilepticus; I10 Essential (primary) hypertension; E11.9 Type 2 diabetes mellitus without complications; F32.A Depression, unspecified; Z79.899 Other long term (current) drug therapy; Z79.82 Long term (current) use of aspirin; Z79.4 Long term (current) use of insulin
CPT/HCPCS: 94644; 94645; 94664; 96374; 99285-25; J2930; J7512

== ENCOUNTER 2024-02-29 18:04 | Emergency (ER) | payer OTHER ==
[~2024-02-29] VITALS: Ht 172.7 cm; Wt 116.1 kg
[2024-02-29] MEDS ORDERED: LORazepam 1 MG Tab PO ONE (18:50)
[2024-02-29 19:07] VITALS: BP 142/84
== END 2024-02-29 19:14 | disposition home or self-care (01) ==
LOC: ER 18:04
DX: R45.851 Suicidal ideations (principal); F32.A Depression, unspecified; S50.812A Abrasion of left forearm, initial encounter; I10 Essential (primary) hypertension; J45.909 Unspecified asthma, uncomplicated; E11.9 Type 2 diabetes mellitus without complications; F43.10 Post-traumatic stress disorder, unspecified; X78.8XXA Intentional self-harm by other sharp object, initial encounter; Z79.51 Long term (current) use of inhaled steroids; Z79.82 Long term (current) use of aspirin; Z79.4 Long term (current) use of insulin; Z79.52 Long term (current) use of systemic steroids
CPT/HCPCS: 99285; A9270

== ENCOUNTER 2024-08-10 20:50 | Emergency (ER) | payer OTHER ==
[~2024-08-10] VITALS: Ht 170.2 cm; Wt 114.3 kg
[2024-08-10 21:16] VITALS: BP 197/93
== END 2024-08-10 21:20 | disposition home or self-care (01) ==
LOC: ER 20:50
DX: I10 Essential (primary) hypertension (principal); G40.909 Epilepsy, unspecified, not intractable, without status epilepticus; J45.909 Unspecified asthma, uncomplicated; E11.9 Type 2 diabetes mellitus without complications; Z79.4 Long term (current) use of insulin; Z79.82 Long term (current) use of aspirin; Z79.52 Long term (current) use of systemic steroids; Z79.899 Other long term (current) drug therapy
CPT/HCPCS: 99283

== ENCOUNTER 2024-08-25 15:59 | Inpatient (IN) | payer OTHER ==
[~2024-08-25] VITALS: Ht 177.8 cm; Wt 113.4 kg
[2024-08-25] MEDS ORDERED: Haloperidol Lactate Inj. 5 MG/ML Injection IM ONE (16:20)
[2024-08-25] MEDS ORDERED: DiphenhydrAMINE HCl 50 MG/ML 1ML Vial IM ONE (16:20)
[2024-08-25] MEDS ORDERED: LORazepam 2 MG/ML 1ML Injection IM ONE (16:20)
[2024-08-25 17:09] LABS: BASOPHILS ABSOLUTE AUTO 0.08 K/mm3 (0.00-0.23); BASOPHILS PERCENT AUTO 1 % (0-2); EOSINOPHILS ABSOLUTE AUTO 0.13 K/mm3 (0.00-0.68); EOSINOPHILS PERCENT AUTO 1 % (0-6); Hematocrit 41.6 % (37.0-53.0); Hemoglobin 15.1 g/dL (13.5-17.5); IMMATURE GRAN ABSOLUTE AUTO 0.06 K/mm3 (0.00-0.10); IMMATURE GRAN PERCENT AUTO 1 % (0-1); LYMPHOCYTES ABSOLUTE AUTO 1.61 K/mm3 (0.84-5.20); LYMPHOCYTES PERCENT AUTO 15 % (21-46); MONOCYTES ABSOLUTE AUTO 0.55 K/mm3 (0.16-1.47); MONOCYTES PERCENT AUTO 5 % (4-13); Mean Corpuscular HGB 30.1 pg (26.0-34.0); Mean Corpuscular HGB Conc 36.3 g/dL (31.5-36.5); Mean Corpuscular Volume 83 fL (80-100); Mean Platelet Volume 10.5 fL (9.1-12.4); NEUTROPHILS ABSOLUTE AUTO 8.65 K/mm3 (1.96-9.15); NEUTROPHILS PERCENT AUTO 78 % (41-73); Platelet Count 255 K/mm3 (150-400); RDW Coefficient Variation 11.7 % (11.7-14.2); RDW Standard Deviation 35.4 fL (35.1-46.3); Red Blood Cell Count 5.02 M/mm3 (4.30-5.90); White Blood Cell Count 11.08 K/mm3 (4.00-11.30)
[2024-08-25 17:27] LABS: Ethanol (Alcohol), Blood, Med <3 mg/dL; Salicylate <1.7 mg/dL (2.8-20.0)
[2024-08-25 17:28] LABS: Acetaminophen, Random <2.0 ug/mL (10.0-30.0); Alanine Aminotransfer (ALT/SGP 60 U/L (12-78); Albumin, Blood 3.8 g/dL (3.4-5.0); Albumin/Globulin Ratio 0.9 (0.8-1.8); Alk Phos 75 U/L (50-136); Anion Gap 16 mmol/L (3-11); Aspartate Aminotrans (AST/SGOT 41 U/L (12-37); Bilirubin, Total 0.6 mg/dL (0.1-1.0); Blood Urea Nitrogen 15 mg/dL (8-24); Bun/Creatinine Ratio 17.7 (12.0-20.0); CO2, Blood 20 mmol/L (21-32); Calcium, Blood 9.5 mg/dL (8.5-10.1); Chloride, Blood 103 mmol/L (98-108); Creatinine, Blood 0.85 mg/dL (0.60-1.20); Globulin, Blood 4.4 g/dL (2.2-4.0); Glomerular Filtration Rate 107 (60-); Glucose, Blood 326 mg/dL (70-99); Sodium, Blood 135 mmol/L (136-145); Total Protein, Blood 8.2 g/dL (6.4-8.2)
[2024-08-25 18:32] LABS: Influenza A, PCR NEGATIVE (NEGATIVE); Influenza B, PCR NEGATIVE (NEGATIVE); Resp Syncytial Virus, PCR NEGATIVE (NEGATIVE); SARS-Cov-2 (COVID-19) PCR, MMC NEGATIVE (NEGATIVE)
[2024-08-25] MEDS ORDERED: TRULICITY1.5 MG/0.1 SC (22:48)
[2024-08-25] MEDS ORDERED: Lidocaine 4% 1 Patch TOP ONE (22:55)
[2024-08-26 07:54] LABS: Source, Urine Clean Catch
[2024-08-26 07:59] LABS: Appearance, Urine Clear (Clear); Bilirubin, Urine Neg (Neg); Blood, Urine Neg (Neg); Color, Urine Yellow (P-Yellow); Glucose Qualitative, Urine 3+ (Neg); Ketones, Urine Neg (Neg); Leukocyte Esterase, Urine 1+ (Neg); Nitrite, Urine Neg (Neg); Protein, Urine 1+ (Neg); Specific Gravity, Urine 1.025 (1.003-1.022); Urobilinogen, Urine NORM (Normal)
[2024-08-26 08:10] LABS: Base Excess Venous 1.6 mmol/L; Bicarbonate Venous 25.2 mmol/L (24.0-30.0); pH Blood Venous 7.38 (7.34-7.37)
[2024-08-26 08:22] VITALS: BP 171/93
[2024-08-26 08:23] LABS: U Amphetamine Screen Not Detected; U Barbituate Screen Not Detected; U Benzodiazapine Screen DETECTED; U Buprenorphine Screen Not Detected; U Cannabinoids Screen Not Detected; U Cocaine Screen Not Detected; U Methadone Screen Not Detected; U Methamphetamine Screen Not Detected; U Opiates Screen Not Detected; U Oxycodone Screen Not Detected; U Phencyclidine Screen Not Detected
[2024-08-26 08:28] LABS: Beta-hydroxybutyrate 1.6 mg/dL (0.2-2.8); Bun/Creatinine Ratio 19.4 (12.0-20.0); Calcium, Blood 9.3 mg/dL (8.5-10.1); Creatinine, Blood 0.83 mg/dL (0.60-1.20); Potassium, Blood 4.1 mmol/L (3.5-5.5)
[2024-08-26 08:39] LABS: Bacteria Few /hpf; Red Blood Cells, Urine 0-2 /hpf (0-2); Squamous Epithelial Cells Few /hpf (Few)
[2024-08-26] MEDS ORDERED: Mometasone Furoate Inhaler 220 mcg 14 ACT INH SCH (12:40)
[2024-08-26] MEDS ORDERED: Albuterol HFA200 ACT/6.7 GM INH INH PRN (12:40)
[2024-08-26] MEDS ORDERED: Lidocaine 4% 1 Patch TOP ONE (13:00)
[2024-08-26] MEDS ORDERED: Acetaminophen 500 MG Tab PO ONE (13:00)
[2024-08-26] MEDS ORDERED: Insulin Human Lispro 100 Units/ML 3ML Syringe SC SCH (16:30)
[2024-08-26] MEDS ORDERED: Atorvastatin 40 MG Tab PO SCH (21:00)
[2024-08-26] MEDS ORDERED: Insulin Glargine-Yfgn 100 Unit/mL 3 ML SYR SC SCH (21:00)
[2024-08-26] MEDS ORDERED: levETIRAcetam 750 MG TABLET PO SCH (21:00)
[2024-08-27] MEDS ORDERED: Omeprazole 20 MG CapCR PO SCH (06:00)
[2024-08-27] MEDS ORDERED: Lisinopril 20 MG Tab PO SCH (09:00)
[2024-08-27] MEDS ORDERED: ALBU90OI INH (12:10)
[2024-08-27] MEDS ORDERED: MULVITA PO (12:11)
[2024-08-27] MEDS ORDERED: Voltaren100 GM TOP (12:11)
== END 2024-08-26 15:19 | DRG 882 ==
LOC: ER 15:59 → ERHOLD 16:00 → ER 16:00 → MEDS 16:00 → ERHOLD 17:25 → MEDS 17:25 → ERHOLD 08-26 15:19
PROVIDERS: ADMIT Student in an Organized Health Care Education/Training Program
DX: F43.12 Post-traumatic stress disorder, chronic (principal); R45.851 Suicidal ideations; R78.1 Finding of opiate drug in blood; F43.10 Post-traumatic stress disorder, unspecified; E11.9 Type 2 diabetes mellitus without complications; Z79.4 Long term (current) use of insulin; Z79.899 Other long term (current) drug therapy; F32.A Depression, unspecified; G40.909 Epilepsy, unspecified, not intractable, without status epilepticus; R45.1 Restlessness and agitation
CPT/HCPCS: 0241U; 70450; 71101; 80048; 80053; 80320; 81001; 82010; 82803; 82947; 83036; 85025; 87086; 93005; 93010; 96372; 99285-25; A9270; G0378; G0480; J1200; J1630; J1815; J2060

== ENCOUNTER 2024-08-26 12:12 | Inpatient (IN) | payer OTHER ==
[~2024-08-26] VITALS: Ht 175.3 cm; Wt 112.0 kg
[~2024-08-26 12:12] MED LIST changes: +TRULICITY1.5 MG/0.1 SC
[2024-08-26] MEDS ORDERED: Haloperidol 5 MG Tab PO PRN (14:45)
[2024-08-26] MEDS ORDERED: HydrOXYzine Pamoate 50 MG Cap PO PRN (14:45)
[2024-08-26] MEDS ORDERED: LORazepam 2 MG Tab PO PRN (14:45)
[2024-08-26] MEDS ORDERED: Ibuprofen 600 MG Tab PO PRN (14:45)
[2024-08-26] MEDS ORDERED: Acetaminophen 325 MG TABLET PO PRN (14:45)
[2024-08-26] MEDS ORDERED: LORazepam 2 MG/ML 1ML Injection IM PRN (14:45)
[2024-08-26] MEDS ORDERED: Melatonin 3 MG Tab PO PRN (14:45)
[2024-08-26] MEDS ORDERED: OLANZapine ODT 10 MG Tab MM PRN (14:50)
[2024-08-26] MEDS ORDERED: Polyethylene Glycol 3350 17 gm PO PRN (14:50)
[2024-08-26] MEDS ORDERED: Calcium Carbonate 500 MG Tab Chew PO PRN (14:50)
[2024-08-26] MEDS ORDERED: DiphenhydrAMINE HCl 50 MG Cap PO PRN (14:50)
[2024-08-26] MEDS ORDERED: Ondansetron 4 MG SoluTab MM PRN (14:50)
[2024-08-26] MEDS ORDERED: Aluminum Hydroxide 320MG/5ML 473 ML PO PRN (14:50)
[2024-08-26] MEDS ORDERED: DiphenhydrAMINE HCl 50 MG/ML 1ML Vial IV PRN (14:55)
[2024-08-26] MEDS ORDERED: FLU VACC TS2024-25(6MOS UP)/PF 45 MCG/0.5 ML SYRINGE IM ONE (14:55)
[2024-08-26] MEDS ORDERED: Haloperidol Lactate Inj. 5 MG/ML Injection IM PRN (14:55)
[2024-08-26] MEDS ORDERED: TraZODone HCl 50 MG Tab PO PRN (14:55)
[2024-08-26] MEDS ORDERED: Sertraline HCl 100 MG Tab PO SCH (15:00)
[2024-08-26 15:32] VITALS: BP 179/121
[2024-08-26] MEDS ORDERED: Albuterol HFA200 ACT/6.7 GM INH INH PRN (15:35)
[2024-08-26 15:47] VITALS: BP 179/121
[2024-08-26] MEDS ORDERED: Insulin Human Lispro 100 Units/ML 3ML Syringe SC SCH (16:30)
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
[2024-08-26] MEDS ORDERED: Mometasone Furoate Inhaler 220 mcg 14 ACT INH SCH (18:00)
[2024-08-26] MEDS ORDERED: levETIRAcetam 750 MG TABLET PO SCH (21:00)
[2024-08-26] MEDS ORDERED: Insulin Glargine-Yfgn 100 Unit/mL 3 ML SYR SC SCH (21:00)
[2024-08-26] MEDS ORDERED: Prazosin HCL 5 MG Cap PO SCH (21:00)
[2024-08-26 22:43] VITALS: BP 177/103
[2024-08-27] MEDS ORDERED: Omeprazole 20 MG CapCR PO SCH (06:00)
--- NOTE | 2024-08-27 06:25 | NUR ---
NOC SHIFT NOC Discussed DM2 mgmt with pt d/t insulin use. Pt confirms HS long-acting 40u + Humalog CBG-based sliding scale. HS glucose = 263. Pt is knowledgeable historian regarding his diabetic meds/mgmt and was able to report that he'd be giving himself 20u on his home sliding scale regimen. Given his familiarity with his diabetes, he is knowledgeable about this. Pt isn't able to give all names/doses of other current meds d/t changes, but is aware that he no longer takes Keppra. Sz hx will need to be assessed after confirmation of current meds from pt's pharmacy during open hours (the med rec has his 2014 Rx, not his current). Pt's will be visiting 08/27 @ 4PM, might be able to provide more details if additional info is needed. Will inform next shift to discuss with provider.
[2024-08-27 08:12] VITALS: BP 146/78
[2024-08-27] MEDS ORDERED: Lisinopril 20 MG Tab PO SCH (09:00)
[2024-08-27] MEDS ORDERED: Multivitamins 1 Tab PO SCH (09:00)
[2024-08-27] MEDS ORDERED: Atorvastatin 40 MG Tab PO SCH (09:00)
[2024-08-27] MEDS ORDERED: INSULANI SC (11:56)
[2024-08-27] MEDS ORDERED: ARIPiprazole 2 MG Tablet PO SCH (12:00)
[2024-08-27] MEDS ORDERED: ALBU90OI INH (12:10)
[2024-08-27] MEDS ORDERED: AMLO5 PO (12:10)
[2024-08-27] MEDS ORDERED: Voltaren100 GM TOP (12:11)
[2024-08-27] MEDS ORDERED: MULVITA PO (12:11)
--- NOTE | 2024-08-27 12:13 | NUR ---
THIS RN REQUESTED MEDICATION LISTS FROM PT'S PHARMACY AND FROM PCP. PER [facility], PT IS NOT CURRENTLY PRESCRIBED INSULIN OR ANY SEIZURE MEDICATION. THIS RN REACHED OUT TO PCP'S OFFICE AT [facility] TO CLARIFY CURRENT MEDICATIONS WELL. PER [facility] THE PATIENT WAS SEEN RECENTLY AND HE IS ONLY PRESCRIBED TRULICITY FOR HIS DIABETES AND IS NOT PRESCRIBED ANYTHING FOR SEIZURES. MEDICATIONS RECONCILED AND MEDICATION LIST SENT FOR REVIEW.
[2024-08-27] MEDS ORDERED: Diclofenac Sodium 100 GM TUBE TOP PRN (15:00)
--- NOTE | 2024-08-27 17:56 | NUR ---
SHIFT SUMMARY PT A/O X3; PLEASANT AND COOPERATIVE WITH CARE. HE DENIES SI, HI, OR ANY HALLUCINATIONS. PT HAS HX OF TBI AND HIS SPEECH CAN BE SOMEWHAT SLURRED AND TANGENTIAL AT TIMES. PT DOES NOT SEEM TO REMEMBER WHAT BROUGHT HIM INTO THE ED AND CAN BE A POOR HISTORIAN. RN REACHED OUT TO PT'S PHARMACY AND PCP AND CONFIRMED THAT PT IS NOT ON HOME MEDICATION FOR DIABETES OR SEIZURES. ACCORDING TO HIS , THE PT'S LAST SEIZURE WAS LAST MONTH. PT REPORTS THAT HE DOES NOT KNOW WHEN HE IS HAVING SEIZURES BUT HE "ZONES OUT" DURING THEM. PT TREATED FOR CHRONIC PAIN PER EMR AND HE IS MONITORED VIA Q15 ROUNDING FOR SAFETY.
[2024-08-27] MEDS ORDERED: Insulin Glargine-Yfgn 100 Unit/mL 3 ML SYR SC SCH (21:00)
[2024-08-27 21:20] VITALS: BP 132/77
[2024-08-28] MEDS ORDERED: AmLODIPine Besylate 5 MG Tab PO SCH (09:00)
[2024-08-28 12:15] VITALS: BP 128/83
--- NOTE | 2024-08-28 14:04 | NUR ---
SEE HARD CHART FOR DOWNTIME CHARTING BETWEEN [phone].
--- NOTE | 2024-08-28 18:44 | NUR ---
SHIFT SUMMARY PT A/O X4; PLEASANT AND COOPERATIVE WITH CARE. HE DENIES SI, HI, OR ANY HALLUCINATIONS. HE PARTICIPATES IN ALL GROUPS, MEALS, AND MILEU ACTIVITIES. PT SEEMS TO BE DOING WELL AND IS DOING WELL WITH HAVING A ROOM MATE. AFFECT IS EUTHMIC AND HIS ATTITUDE IS POSITIVE.
[2024-08-29 00:10] VITALS: BP 130/79
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
[2024-08-29 08:20] LABS: CHOL/HDL RATIO 4.4; Cholesterol 167 mg/dL (50-200); HDL Cholesterol 38 mg/dL (>39); LDL/HDL RATIO 2.7; Low Density Lipoprotein Chol 103 mg/dL (0-110); Triglycerides 128 mg/dL (30-160); Very Low Density Lipoprot Chol 25 mg/dL (6-32)
[2024-08-29 08:38] VITALS: BP 114/66
[2024-08-29] MEDS ORDERED: Insulin Glargine-Yfgn 100 Unit/mL 3 ML SYR SC SCH (09:00)
--- NOTE | 2024-08-29 17:08 | NUR ---
SHIFT NOTE: PT UP FOR MEALS, SNACKS, AND ACTIVITIES THIS SHIFT. PT DENIES ANY SI/HI/AVH. CMG CHECKS PERFORMED ORDERED QAC AD QHS WITH LOW S/S INSULIN ADMINISTERED. PT HAD AN INCREASE IN GLARGINE TO 25 UNITS. PT HAD A VISIT TODAY FROM HIS S/O AND FRIEND NAMED FIDE. HE BECAME TEARFUL AND WAS FOUND PACING THE HALLWAYS AFTER THE VISIT. HE EXPRESSED CONCERN TO THIS RN THAT HE HAS HIS LAST LIVING FAMILY MEMBER WHO IS NOT DOING WELL AND MAY BE PASSING AWAY. PT HAD NO OTHER ISSUES THIS SHIFT AND HE WAS COMPLIANT WITH ALL ACTIVITIES AND MEDICATIONS THIS SHIFT.
[2024-08-29 21:07] VITALS: BP 144/82
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
[2024-08-30 08:03] VITALS: BP 125/67
--- NOTE | 2024-08-30 10:27 | NUR ---
HOSPITAL DISCHARGE APPOINTMENT Patient has hospital discharge appointment with Greg Barry MD on Wednesday, September 04, 2024 at 1300. [address] [place], [place] [address] // [phone] entered appointment information into patient's discharge packet
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
[2024-08-30 22:34] VITALS: BP 140/79
--- NOTE | 2024-08-31 04:24 | NUR ---
PATIENT WAS IN THE GROUP ROOM AT THE BEGINNING OF THE SHIFT, WATCHING TELEVISION WITH STAFF AND PEERS. HE WAS PLEASANT WITH A GOOD SENSE OF HUMOR AND COOPERATIVE WITH CARES. HE JOINED THE GROUP FOR SNACK AND FOLLOW UP AT 1999 IN THE DINING AREA. HE WAS COMPLIANT WITH MEDICATION ADMINISTRATION. HE WAS ABLE TO MAKE NEEDS KNOWN. HE HAD NO ISSUES OR CONCERNS NOTED THIS SHIFT. HE CONTINUED TO WATCH TELEVISION AFTER SNACK TIME, AND THEN WENT TO BED AT 2200. HE WAS IN BED RESTING WITH EYES CLOSED AND RESPIRATIONS CONFIRMED FOR THE REMAINDER OF THE SHIFT. HE HAD NO S/SX SUICIDAL IDEATION OR SELF HARM THIS SHIFT. CONTINUING TO MONITOR FOR SAFETY WITH Q15 MINUTE CHECKS. CBG AT 1999 WAS 201, LONG ACTING INSULIN GIVEN, NO OTHER INSULIN INDICATED.
[2024-08-31 08:17] VITALS: BP 135/71
[2024-08-31] MEDS ORDERED: ARIPiprazole 5 MG Tab PO SCH (09:00)
[2024-08-31] MEDS ORDERED: Insulin Glargine-Yfgn 100 Unit/mL 3 ML SYR SC SCH (09:00)
--- NOTE | 2024-08-31 12:08 | NUR ---
IMPORTANT PATIENT INFORMATION Patient spouse Jackie phone number [phone]
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
--- NOTE | 2024-08-31 19:58 | NUR ---
PATIENT CBG AT 1930 WAS 239. WILL GET 25 UNITS GARGLINE, NO REGULAR INSULIN INDICATED.
[2024-08-31 22:46] VITALS: BP 158/81
--- NOTE | 2024-09-01 04:31 | NUR ---
PATIENT WAS IN AND OUT OF THE GROUP ROOM AT THE BEGINNING OF THE SHIFT, BEING POSITIVELY SOCIAL WITH STAFF AND PEERS. HIS CBG AT 1930 WAS 239. HE PARTICIPATED IN SNACK AND FOLLOW UP AT 1999. HE WAS COMPLIANT WITH EVENING MEDICATION ADMINISTRATION. HE STATED THAT HE HAD "A GOOD DAY" AND DECIDED HE WAS "AT [place] WITH WHAT IS HAPPENING IN MY FAMILY". HE WENT TO BED AFTER SNACK TIME AND WAS NOTED TO BE RESTING QUIETLY WITH EYES CLOSED AND RESPIRATIONS CONFIRMED FOR THE REMAINDER OF THE SHIFT. HE HAD NO S/SX SUICIDAL IDEATION OR SELF HARM THIS SHIFT. CONTINUING TO MONITOR FOR SAFETY WITH Q15 MINUTE CHECKS.
[2024-09-01 08:01] VITALS: BP 134/81
[2024-09-01] MEDS ORDERED: ARIPiprazole 5 MG Tab PO SCH (09:00)
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
--- NOTE | 2024-09-01 20:38 | NUR ---
PATIENT CBG AT 1930 WAS 247. NO REGULAR INSULIN COVERAGE INDICATED. 30U GLARGINE GIVEN.
[2024-09-01 23:41] VITALS: BP 155/78
--- NOTE | 2024-09-02 04:23 | NUR ---
SHIFT SUMMARY: PATIENT WAS PARTICIPATORY IN GROUP ROOM AND DINING AREA ACTIVITIES THIS SHIFT. HE TOOK A SHOWER AND WAS COMPLIANT WITH MEDICATION ADMINISTRATION. HE WAS POSITIVE AND COOPERATIVE WITH CARES. HE INTERACTED WELL WITH STAFF AND PEERS. HE WENT TO BED FAIRLY EARLY AND WAS NOTED TO BE RESTING QUIETLY WITH EYES CLOSED AND RESPIRATIONS CONFIRMED. HE HAD NO S/SX SUICIDAL IDEATION OR SELF HARM THIS SHIFT. CONTINUING TO MONITOR FOR SAFETY WITH Q15 MINUTE CHECKS.
[2024-09-02 07:37] VITALS: BP 133/84
[2024-09-02] MEDS ORDERED: ARIPiprazole 10 MG Tab PO SCH (09:00)
--- NOTE | 2024-09-02 17:36 | NUR ---
SHIFT SUMMARY PT A/O X4; PLEASANT AND COOPERATIVE WITH CARE. HE DENIES SI, HI, OR ANY HALLUCINATIONS. HE ATTENDED ALL MEALS AND GROUPS THIS SHIFT. HE HAS ALSO BEEN OUT ON THE MILEU OFTEN, INTERACTING WITH HIS PEERS. HE CONTINUES TO BE MONITORED VIA Q15 ROUNDS FOR SAFETY.
--- NOTE | 2024-09-03 04:10 | NUR ---
SHIFT SUMMARY: ASSUMED CARE FROM PRIOR SHIFT. PATIENT IS A/OX4, ABLE TO VOICE NEEDS AND HAVE MEANINGFUL CONVERSATION. THERE IS A SLIGHT DELAY IN HIS RESPOUNCES. HE IS COMPLIANT WITH MEDICATIONS, ASSESSMENT AND CARE. HE CURRENTLY DENIES SI, VH, AH AND TH. HE IS A LITTLE SAD THAT HE ISN'T AT HOME, IT IS HIS SPOUSES BIRTHDAY TODAY. HE PARTICIPATES WITH GROUP AND SNACK TIME. HE IS HAVING AWARENESS TO A BETTER DIET REGARDING DM, AND MAKING BETTER FOOD CHOICES. HE GOES TO BED WITHOUT ENCOURAGMENT. NO NOTED BEHAVIORS OR ISSUES. HE SLEEPS THROUGH THE NIGHT. WE WILL CONTINUE TO MONITOR EVERY 15 MINUTES FOR SAFET AND COMFORT.
--- NOTE | 2024-09-03 05:48 | NUR ---
PATIENT SLEPTED THROUGH THE NIGHT. NO NOTED ISSUES OR BEHAVIORS.
[2024-09-03 09:05] VITALS: BP 127/84
--- NOTE | 2024-09-03 10:39 | NUR ---
SHIFT NOTE: PT DENIED SI, HI, AVH AND PAIN. HE ENDORSED "A LITTLE ANXIETY." HE HAS BEEN PARTICIPATING IN GROUPS AND HAS BEEN ACTIVE IN THE PT MILIEU. HIS BLOOD SUGAR THIS MORNING WAS 212 AND WAS COVERED WITH 2 UNITS OF HUMALOG. PT IS CURRENTLY IN GROUP. HE IS SET TO DISCHARGE TODAY.
[2024-09-03] MEDS ORDERED: ABILIFY MYCITE10 M2 PO (12:37)
[2024-09-03] MEDS ORDERED: SERT100 PO (12:37)
[2024-09-03] MEDS ORDERED: PRAZ5 PO (12:37)
[2024-09-03] MEDS ORDERED: LEVE500 PO (12:46)
[2024-09-03] MEDS ORDERED: HUMALOG KW100 UNIT/1 SC (12:49)
--- NOTE | 2024-09-03 13:25 | NUR ---
13:25 PT WAS DISCHARGED TO HOME WITH ALL OF HIS BELONGINGS AND HIS DISCHARGE INSTRUCTIONS. SAFETY PLAN WAS COMPLETED WITH THE PT AND AN RN. PT WAS TAKEN HOME BY HIS .
== END 2024-09-03 13:20 | disposition home or self-care (01) | DRG 885 ==
LOC: BHU 12:12
PROVIDERS: Psychiatry & Neurology Psychiatry; ADMIT Student in an Organized Health Care Education/Training Program
DX: F33.2 Major depressive disorder, recurrent severe without psychotic features (principal); K21.9 Gastro-esophageal reflux disease without esophagitis; I10 Essential (primary) hypertension; E11.9 Type 2 diabetes mellitus without complications; J45.909 Unspecified asthma, uncomplicated; F43.12 Post-traumatic stress disorder, chronic; Z79.899 Other long term (current) drug therapy; G40.909 Epilepsy, unspecified, not intractable, without status epilepticus; Z91.51 Personal history of suicidal behavior; Z87.820 Personal history of traumatic brain injury; Z79.4 Long term (current) use of insulin; F41.1 Generalized anxiety disorder; Z98.890 Other specified postprocedural states; G47.33 Obstructive sleep apnea (adult) (pediatric); Z91.148 Patient's other noncompliance with medication regimen for other reason
CPT/HCPCS: 36415; 80061; 82947; 83036; A9270; J1815

== ENCOUNTER 2024-09-07 15:44 | Emergency (ER) | payer OTHER ==
[~2024-09-07] VITALS: Ht 172.7 cm; Wt 113.8 kg
[~2024-09-07 15:44] MED LIST changes: +ABILIFY MYCITE10 M2 PO; +HUMALOG KW100 UNIT/1 SC; +MULVITA PO; +Voltaren100 GM TOP
[2024-09-07 16:03] VITALS: BP 196/93
[2024-09-07] MEDS ORDERED: SEROQUEL25 MG PO (21:32)
== END 2024-09-07 21:35 | disposition home or self-care (01) ==
LOC: ER 15:44
DX: G47.00 Insomnia, unspecified (principal); I10 Essential (primary) hypertension; J45.909 Unspecified asthma, uncomplicated; F43.10 Post-traumatic stress disorder, unspecified; Z79.4 Long term (current) use of insulin; Z79.899 Other long term (current) drug therapy
CPT/HCPCS: 99282

== ENCOUNTER 2024-11-16 19:46 | Observation (INO) | payer OTHER ==
[~2024-11-16] VITALS: Ht 172.7 cm; Wt 115.7 kg
[~2024-11-16 19:46] MED LIST changes: +SEROQUEL25 MG PO
[2024-11-16] MEDS ORDERED: [UNRECOGNIZED DRUG - CODE] PO (20:48)
[2024-11-16] MEDS ORDERED: HyDROXyzine HCl 25 MG Tab PO ONE (20:50)
[2024-11-16] MEDS ORDERED: QUEtiapine Fumarate 100 MG Tab PO ONE (20:50)
[2024-11-16 21:34] LABS: BASOPHILS ABSOLUTE AUTO 0.07 K/mm3 (0.00-0.23); BASOPHILS PERCENT AUTO 1 % (0-2); EOSINOPHILS ABSOLUTE AUTO 0.25 K/mm3 (0.00-0.68); EOSINOPHILS PERCENT AUTO 3 % (0-6); Hematocrit 40.3 % (37.0-53.0); Hemoglobin 14.5 g/dL (13.5-17.5); IMMATURE GRAN ABSOLUTE AUTO 0.04 K/mm3 (0.00-0.10); IMMATURE GRAN PERCENT AUTO 1 % (0-1); LYMPHOCYTES ABSOLUTE AUTO 3.31 K/mm3 (0.84-5.20); LYMPHOCYTES PERCENT AUTO 39 % (21-46); MONOCYTES ABSOLUTE AUTO 0.57 K/mm3 (0.16-1.47); MONOCYTES PERCENT AUTO 7 % (4-13); Mean Corpuscular HGB 30.5 pg (26.0-34.0); Mean Corpuscular Volume 85 fL (80-100); Mean Platelet Volume 10.5 fL (9.1-12.4); NEUTROPHILS ABSOLUTE AUTO 4.19 K/mm3 (1.96-9.15); NEUTROPHILS PERCENT AUTO 50 % (41-73); Platelet Count 253 K/mm3 (150-400); RDW Coefficient Variation 11.8 % (11.7-14.2); RDW Standard Deviation 35.8 fL (35.1-46.3); Red Blood Cell Count 4.75 M/mm3 (4.30-5.90); White Blood Cell Count 8.43 K/mm3 (4.00-11.30)
[2024-11-16 21:44] LABS: Ethanol (Alcohol), Blood, Med <3 mg/dL; Salicylate <1.7 mg/dL (2.8-20.0)
[2024-11-16 21:46] LABS: Acetaminophen, Random <2.0 ug/mL (10.0-30.0); Alanine Aminotransfer (ALT/SGP 53 U/L (12-78); Alk Phos 72 U/L (50-136); Anion Gap 10 mmol/L (3-11); Aspartate Aminotrans (AST/SGOT 30 U/L (12-37); Bilirubin, Total 0.4 mg/dL (0.1-1.0); Blood Urea Nitrogen 9 mg/dL (8-24); Bun/Creatinine Ratio 11.5 (12.0-20.0); CO2, Blood 25 mmol/L (21-32); Calcium, Blood 9.6 mg/dL (8.5-10.1); Chloride, Blood 106 mmol/L (98-108); Creatinine, Blood 0.78 mg/dL (0.60-1.20); Globulin, Blood 4.1 g/dL (2.2-4.0); Glomerular Filtration Rate 109 (60-); Glucose, Blood 159 mg/dL (70-99); Potassium, Blood 3.6 mmol/L (3.5-5.5); Sodium, Blood 137 mmol/L (136-145); Total Protein, Blood 8.1 g/dL (6.4-8.2)
[2024-11-17 08:24] LABS: Source, Urine Clean Catch
[2024-11-17 08:28] LABS: Appearance, Urine Clear (Clear); Bilirubin, Urine Neg (Neg); Blood, Urine Neg (Neg); Color, Urine Yellow (P-Yellow); Glucose Qualitative, Urine 3+ (Neg); Ketones, Urine Neg (Neg); Leukocyte Esterase, Urine Neg (Neg); Nitrite, Urine Neg (Neg); Protein, Urine Neg (Neg); Specific Gravity, Urine 1.025 (1.003-1.022); Urobilinogen, Urine NORM (Normal)
[2024-11-17 08:39] LABS: U Amphetamine Screen Not Detected; U Barbituate Screen Not Detected; U Benzodiazapine Screen Not Detected; U Buprenorphine Screen Not Detected; U Cannabinoids Screen Not Detected; U Cocaine Screen Not Detected; U Methadone Screen Not Detected; U Methamphetamine Screen Not Detected; U Opiates Screen Not Detected; U Oxycodone Screen Not Detected; U Phencyclidine Screen Not Detected
[2024-11-17 09:31] VITALS: BP 152/88
== END 2024-11-17 23:00 | disposition home or self-care (01) ==
LOC: ER 19:46 → EOR 19:47
PROVIDERS: Student in an Organized Health Care Education/Training Program; ADMIT Student in an Organized Health Care Education/Training Program
DX: F31.2 Bipolar disorder, current episode manic severe with psychotic features (principal); R45.850 Homicidal ideations; F43.10 Post-traumatic stress disorder, unspecified; G40.909 Epilepsy, unspecified, not intractable, without status epilepticus; I10 Essential (primary) hypertension; E11.9 Type 2 diabetes mellitus without complications; G47.33 Obstructive sleep apnea (adult) (pediatric); Z87.820 Personal history of traumatic brain injury; Z87.891 Personal history of nicotine dependence; Z79.4 Long term (current) use of insulin; Z79.85 Long-term (current) use of injectable non-insulin antidiabetic drugs; Z79.899 Other long term (current) drug therapy
CPT/HCPCS: 80053; 80320; 81003; 85025; 99285; A9270; G0378; G0480

== ENCOUNTER 2024-11-17 11:04 | Inpatient (IN) | payer OTHER ==
[~2024-11-17] VITALS: Ht 172.7 cm; Wt 112.3 kg
[~2024-11-17 11:04] MED LIST changes: +[UNRECOGNIZED DRUG - CODE] PO
[2024-11-17] MEDS ORDERED: OLANZapine ODT 10 MG Tab MM PRN (12:30)
[2024-11-17] MEDS ORDERED: Melatonin 3 MG Tab PO PRN (12:35)
[2024-11-17] MEDS ORDERED: TraZODone HCl 50 MG Tab PO PRN (12:35)
[2024-11-17] MEDS ORDERED: Ibuprofen 600 MG Tab PO PRN (12:35)
[2024-11-17] MEDS ORDERED: HydrOXYzine Pamoate 50 MG Cap PO PRN (12:35)
[2024-11-17] MEDS ORDERED: Calcium Carbonate 500 MG Tab Chew PO PRN (12:35)
[2024-11-17] MEDS ORDERED: Polyethylene Glycol 3350 17 gm PO PRN (12:35)
[2024-11-17] MEDS ORDERED: Acetaminophen 325 MG TABLET PO PRN (12:40)
[2024-11-17] MEDS ORDERED: Aluminum Hydroxide 320MG/5ML 473 ML PO PRN (12:40)
[2024-11-17] MEDS ORDERED: Ondansetron 4 MG SoluTab MM PRN (12:50)
[2024-11-17 14:45] VITALS: BP 181/102
[2024-11-17 15:30] VITALS: BP 181/102
[2024-11-17 15:35] VITALS: BP 181/102
--- NOTE | 2024-11-17 17:24 | NUR ---
ADMISSION NOTE PT ARRIVED TO [facility] AT 1437, COMING FROM ED CRISIS UNIT. HE HAS A HX OF STATED BIPOLAR DX. HE DENIES SI BUT DOES HAVE A HX OF THOUGHTS IN THE PAST. YESTERDAY HE HAD HIS STEP SON BRING HIM TO THE ER HE STARTED HAVING AUDITORY HALUCINATIONS WITH VOICES TELLING HIM TO KILL A CERTAIN PERSON KNOWN TO THE PT. HE WOULD NOT SHARE THE PERSONS NAME WITH THIS RN. HE IS INVOLUNTARY ON THIS ADMISSION. HE ENDORSES CONTINUED AUDITORY HALLUCINATION JUST CALLING HIS NAME BUT DENIES THE ENCOURAGEMENT TO KILL. HE IS VERY COOPERATIVE AND WANTS THE HELP PROVIDED BY [facility]. MEDICAL CONSULT HAS BEEN PUT INTO DR LANDEROS TO MANAGE PT'S DIABETES AND HYPERTENSION, CBG 194 AT 1700. PT LIVES AT HOME WITH HIS VERY SUPPORTIVE IN [place]. PT WILL HAVE SAFETY MONITORING EVERY 15 MINUTES TO ENSURE SAFETY.
[2024-11-17 19:58] LABS: Bun/Creatinine Ratio 14.3 (12.0-20.0); Calcium, Blood 9.6 mg/dL (8.5-10.1); Creatinine, Blood 0.84 mg/dL (0.60-1.20); Potassium, Blood 4.2 mmol/L (3.5-5.5)
[2024-11-17] MEDS ORDERED: Insulin Glargine-Yfgn 100 Unit/mL 3 ML SYR SC SCH (21:00)
[2024-11-17] MEDS ORDERED: OLANZapine 10 MG Tab PO SCH (21:00)
[2024-11-17] MEDS ORDERED: HydrALAZINE HCl 10 MG Tab PO SCH (21:00)
[2024-11-17 21:56] VITALS: BP 182/103
[2024-11-17 23:32] VITALS: BP 141/92
--- NOTE | 2024-11-18 05:18 | NUR ---
SHIFT SUMMARY NO ACUTE EVENTS OVERNIGHT. DENIES SI, HI, V/T HALLUCINATIONS. ENDORSES AUDITORY HALLUCINATIONS THAT NOW TELL HIM HOW WRONG HE WAS FOR HAVING "THOSE THOUGHTS" REFERRING TO PREVIOUS H.I. EVEN THOUGH THE SAME VOICES TOLD HIM TO KILL SOMEONE. PT ALSO STATES THAT HE HEARS HIS NAME BEING CALLED INTERMITTENTLY. SLEPT T/O NIGHT. SEE PREVIOUS NOTE.
[2024-11-18] MEDS ORDERED: Insulin Human Lispro 100 Units/ML 3ML Syringe SC SCH (07:30)
[2024-11-18 08:14] VITALS: BP 158/95
[2024-11-18] MEDS ORDERED: AmLODIPine Besylate 5 MG Tab PO SCH (09:00)
[2024-11-18] MEDS ORDERED: Multivitamins 1 Tab PO SCH (09:00)
[2024-11-18] MEDS ORDERED: Lisinopril 20 MG Tab PO SCH (09:00)
--- NOTE | 2024-11-18 17:27 | NUR ---
SHIFT SUMMARY PT HAS BEEN UP SINCE THE START OF SHIFT, HAS ATTENDED ALL MEALS AND PARTICIPATED IN THE GROUPS THAT OUR MHA DID WITH THE PATIENTS. HE'S FAIRLY QUIET TODAY BUT WILL ANSWER QUESTIONS. HE DENIES SI/HI BUT HE ENDORSES AUDITORY HALLUCINATIONS, VOICES ARE TELLING HIM HOW TERRIBLE HE IS FOR HAVING THOUGHTS OF NEEDING TO KILL THE PERSON HE KNOWS. PT HAS BEEN VERY COOPERATIVE AND POLITE, HIS BLOOD SUGARS HAVE BEEN IN THE 180'S TODAY AND HAS RECEIVED SC INSULIN PER EMAR, PT HAS CONTINUED TO RECEIVE Q15 SAFETY CHECKS.
[2024-11-18] MEDS ORDERED: OLANZapine 10 MG Tab PO SCH (21:00)
[2024-11-18] MEDS ORDERED: LamoTRIgine 25 MG Tab PO SCH (21:00)
[2024-11-18 22:11] VITALS: BP 165/95
--- NOTE | 2024-11-19 05:10 | NUR ---
SHIFT SUMMARY NO ACUTE EVENTS OVERNIGHT. PT RESTED/SLEPT QUIETLY FOR MOST OF NIGHT. DENIES SI, HI, V/T HALLUCINATIONS. ENDORSES AUDITORY HALLUCINATIONS, BUT STATES THAT HE ONLY HEARS INTERMITTENT VOICES CALLING HIS NAME. SLEPT/RESTED QUIETLY FOR MOST OF NIGHT.
[2024-11-19 07:26] VITALS: BP 143/104
[2024-11-19] MEDS ORDERED: AmLODIPine Besylate 5 MG Tab PO SCH (09:00)
--- NOTE | 2024-11-19 17:13 | NUR ---
SHIFT SUMMARY PT HAS BEEN UP AND IN THE MILIEU THROUGHOUT SHIFT, HE REALLY ENJOYS WATCHING TV. FULL PARTICIPATION IN GROUPS AND MEAL TIME. IF THE TV ROOM IS NOT OPEN HE WILL SIT IN A CHAIR BY THE MEDICATION ROOM. PT HAS DENIED SI/HI/AVH TODAY, COMPLIANT WITH MEDICATIONS, HIS HOLD WILL BE UP ON TUESDAY. NORVASC INCREASED FROM 5 to 10MG TODAY. HE HAS CONTINUED TO HAVE Q15 MIN SAFETY CHECKS
[2024-11-19 20:00] VITALS: BP 140/92; BP 151/89
--- NOTE | 2024-11-19 22:10 | NUR ---
PATIENT'S BP AND PULSE PUT IN X2. PLEASE DISREGARD MR=[id number] AND P=98.
--- NOTE | 2024-11-20 05:11 | NUR ---
SHIFT SUMMARY: PT A/O X4. PLEASANT AND COOPERATIVE. DENIES SI/HI/AVH. UP IN THE GROUP ROOM AT THE BEGINNING OF THE SHIFT. INTERACTING WITH OTHERS IN THE MILIEU. MOOD IS LESS FLAT TODAY. PT SMILES AND JOKES AROUND. WAS IN WRAP UP GROUP AND HAD SNACK. WATCHED TV UNTIL BED TIME. SLEPT THROUGH THE SHIFT. WILL CONTINUE TO MONITOR.
[2024-11-20 06:52] LABS: CHOL/HDL RATIO 5.8; Cholesterol 184 mg/dL (50-200); HDL Cholesterol 32 mg/dL (>39); LDL/HDL RATIO 3.3; Low Density Lipoprotein Chol 107 mg/dL (0-110); Triglycerides 226 mg/dL (30-160); Very Low Density Lipoprot Chol 45 mg/dL (6-32)
[2024-11-20 08:09] VITALS: BP 149/95
[2024-11-20] MEDS ORDERED: Insulin Glargine-Yfgn 100 Unit/mL 3 ML SYR SC SCH (09:00)
[2024-11-20] MEDS ORDERED: ARIPiprazole 300 MG SUSER.SYR IM SCH (12:00)
--- NOTE | 2024-11-20 15:04 | NUR ---
"Spiritual Care | Pt. Request Pt. greets this integration lead, and affirms that we have met on a previous visit. Pt. verbalizes that he was in a high anxiety environment when he knew he had to return to the U. Listen with interest and empathy. Considered matters of mercedes and belief, as well as a spiritual care plan upon discharge. Prayed for the Pt. Pt. verbalized gratitude for the spiritual care visit."
--- NOTE | 2024-11-20 18:05 | NUR ---
SHIFT SUMMARY PT A/O X4; PLEASANT AND COOPERATIVE WITH CARE. HE DENIES SI, HI, OR AVTH. HE SAYS THAT HE IS "DOING BETTER THAN WHEN I CAME IN." HIS AFFECT IS SOMEWHAT FLAT BUT HE ATTENDS ALL GROUPS, MEALS, AND INTERACTS WITH PEERS APPROPRIATELY. PT RECEIVED LONG ACTING ABILIFY INJECTION THIS SHIFT. HE IS MONITORED VIA Q15 ROUNDING FOR SAFETY AND WELLNESS.
[2024-11-20 20:00] VITALS: BP 157/87
[2024-11-20] MEDS ORDERED: CloNIDine 0.1 MG Tab PO SCH (21:00)
--- NOTE | 2024-11-20 22:08 | NUR ---
PT A/O X4. DENIES SI, HI AND AVH. PT UP IN THE GROUP ROOM AT THE BEGINNING OF SHIFT. WATCHING TV WIT OTHERS, INTERACTS WELL WITH PEERS. PT IS COMPLIANT WITH MEDS AND FINGER STICKS. PT IS LOOKING FORWARD TO GOING HOME BY THE END OF THE WEEK. PT KEEPS IN CONTACT WITH HIS [employer]. PT'S MOOD IS MORE CALM AND BRIGHT THAN YESTERDAY. PT WAS UP FOR GROUP AND SNACK TIME BEFORE GOING TO BED. WILL CONTINUE TO [facility] FOR SAFETY AND WELL NESS
--- NOTE | 2024-11-21 04:23 | NUR ---
SHIFT SUMMARY UPDATE ASSUMED CARE AT 0000, NO CHANGES FROM PREVIOUS NOTE. PATIENT APPEARS TO BE SLEEPING RESP EVEN AND UNLABORED. CONTINUE TO MONITOR Q15MIN
[2024-11-21 08:09] VITALS: BP 152/93
[2024-11-21] MEDS ORDERED: Insulin Glargine-Yfgn 100 Unit/mL 3 ML SYR SC ONE (10:00)
--- NOTE | 2024-11-21 14:09 | NUR ---
SHIFT SUMMARY: PT DENIED SI, HI, AVH, AND PHYSICAL PAIN. HE REPORTED HIS MOOD , "OK...I'M JUST TIRED TODAY." PT HAS ATTENDED AND BEEN ACTIVE IN ALL GROUPS. HE HAS BEEN PLEASANT AND COOPERATIVE WITH CARE. HIS BLOOD SUGAR THIS MORNING WAS 199 SO HE WAS COVERED WITH 1U OF HUMALOG. AT 11:30 HIS BLOOD SUGAR WAS 184 AND WAS COVERED WITH 3U OF HUMALOG. HE IS PRESENTLY IN GROUP.
[2024-11-21] MEDS ORDERED: Insulin Human Lispro 100 Units/ML 3ML Syringe SC SCH (16:30)
[2024-11-21 19:23] VITALS: BP 145/81
[2024-11-21] MEDS ORDERED: Insulin Glargine-Yfgn 100 Unit/mL 3 ML SYR SC SCH (21:00)
--- NOTE | 2024-11-22 05:10 | NUR ---
SHIFT SUMMARY NO ACUTE EVENTS OVERNIGHT. PT DENIES SI, HI, AVTH AT THIS TIME. PT STATED HE WAS "EXCITED" ABOUT SOON DISCHARGE, BUT WAS "ANGRY" D/T HIS NOT CALLING HIM BACK TODAY. THERAPEUTIC COMMUNICATION USED AND APPEARED EFFECTIVE. TOLD PT TO CONSIDER THAT HIS MAY BE OVERWHELMED AND TO GIVE HER SOME TIME/CALL HER TOMORROW. PT NODDED AND WENT TO SNACKTIME. PT WATCHED TV AT START OF SHIFT. AFFECT APPEARS CONSTRICTED.
[2024-11-22 08:14] VITALS: BP 155/83
[2024-11-22] MEDS ORDERED: Insulin Glargine-Yfgn 100 Unit/mL 3 ML SYR SC ONE (12:00)
--- NOTE | 2024-11-22 12:17 | NUR ---
IMPORTANT DISCHARGE INFORMATION PATIENT IS DISCHARGING HOME TO [place] [facility] WITH SPOUSE ON 11/23/24 1PM. SPOUSE AND OR FRIEND COMING TO PICK HIM UP. PCP FOLLOW UP ON 11/28/24 AT 3:40PM PHARMACY: [facility]
[2024-11-22] MEDS ORDERED: CloNIDine 0.1 MG Tab PO SCH (14:00)
[2024-11-22 14:28] VITALS: BP 141/86
--- NOTE | 2024-11-22 14:31 | NUR ---
SHIFT SUMMARY: PT DENIED SI, HI AND AVH. PT REPORTED A LITTLE ANXIETY RELATED TO DISCHARGE. PT COMPLAINED ABOUT CRACKS IN HIS FEET, HE HAS SIGNIFICANT CRACKS ON BOTH HEELS, HE REPORTED THAT HE HAS A PRIMARY CARE APPOINTMENT SOON, HE WAS ADVISED TO SHOW HIS PROVIDER HIS FEET. HIS MOOD IS "I'M LEAVING TOMORROW AND MY MOOD WILL BE BETTER THEN." HE SMILED, AND HAS BEEN JOKING AROUND. PT HAS ATTENDED GROUPS AND BEEN PART OF THE PT MILIEU TODAY. HE HAS BEEN PLEASANT AND COOPERATIVE.
--- NOTE | 2024-11-22 14:41 | NUR ---
1400 PT'S BLOOD SUGAR WAS RETESTED DUE TO THIS SUPERVISOR [employer]LECT[employer] WAS NOT SURE HE GOT ALL OF THE PREVIOUS DOSE OF INSULIN. HIS BLOOD SUGAR WAS 329, WAS NOTIFIED AND ORDERED THAT THE SLIDING SCALE BE GIVEN. 12U OF HUMALOG GIVEN AT 1416. PT WAS ASYMPTOMATIC.
[2024-11-22 19:23] VITALS: BP 126/77
[2024-11-22] MEDS ORDERED: Insulin Glargine-Yfgn 100 Unit/mL 3 ML SYR SC SCH (21:00)
[2024-11-22] MEDS ORDERED: AMLO10 PO (22:36)
[2024-11-23] MEDS ORDERED: LAMO25 PO (06:01)
[2024-11-23] MEDS ORDERED: HYDR10 PO (06:01)
[2024-11-23] MEDS ORDERED: OLAN10 PO (06:02)
[2024-11-23] MEDS ORDERED: CATAPRES0.1 MG PO (06:07)
--- NOTE | 2024-11-23 06:14 | NUR ---
SHIFT SUMMARY PT DENIES SI, HI, AVTH AT THIS TIME. TO THIS RN HE EXPRESSED EXCITEMENT AT DISCHARGE, BUT LATER MHA TOLD THIS RN THAT PT EXPRESSED WORRY ABOUT SOMETHING THAT MIGHT "POP UP" THAT MAY BE A CAUSE FOR HIM TO DELAY DISCHARGE. PT CONTINUES TO HAVE CONSTRICTED AFFECT AND DID NOT INTERACT W/ PEERS. PT TOOK MEDICATIONS ORDERED. DECLINED TRAZADONE AND STAED, "I WANT TO TRY TO SLEEP WITHOUT IT.".
[2024-11-23 08:06] VITALS: BP 155/87
[2024-11-23] MEDS ORDERED: ABILIFY MAINTE300 M1 IM (09:40)
--- NOTE | 2024-11-23 12:39 | NUR ---
DISCHARGE PT A/O X4; PLEASANT AND COOPERATIVE WITH CARE. HE DENIES SI, HI, AVTH. AFFECT IS CONSTRICTED. PT STARTED ON ABILIFY MAINTENA INJECTION WHILE IN U AND DISCHARGED WITH PRESCRIPTION. RN NOTIFIED PCP AT [facility] THAT PT WILL NEED TO HAVE PCP OFFICE GIVE INJECTIONS OUTPATIENT. [facility]ON VERBALIZED UNDERSTANDING AND TOOK NOTE. PT EDUCATED ON DISCHARGE INSTRUCTIONS AND FOLLOW UP, PT VERBALIZED UNDERSTANDING. PT'S BELONGINGS RETURNED AND HE WAS PICKED UP BY HIS . PT DISCHARGED AT 1227.
== END 2024-11-23 12:27 | disposition home or self-care (01) | DRG 885 ==
LOC: BHU 11:04
PROVIDERS: Internal Medicine; ADMIT Student in an Organized Health Care Education/Training Program
DX: F31.2 Bipolar disorder, current episode manic severe with psychotic features (principal); R45.851 Suicidal ideations; I10 Essential (primary) hypertension; F43.10 Post-traumatic stress disorder, unspecified; G40.909 Epilepsy, unspecified, not intractable, without status epilepticus; J45.909 Unspecified asthma, uncomplicated; G47.30 Sleep apnea, unspecified; R09.1 Pleurisy; K21.9 Gastro-esophageal reflux disease without esophagitis; E11.65 Type 2 diabetes mellitus with hyperglycemia; Z79.899 Other long term (current) drug therapy; Z87.820 Personal history of traumatic brain injury; Z79.4 Long term (current) use of insulin; Z79.85 Long-term (current) use of injectable non-insulin antidiabetic drugs; Z79.811 Long term (current) use of aromatase inhibitors
CPT/HCPCS: 36415; 80048; 80061; 82947; 83036; 86592; 93005; 93010; A9270; J0401; J1815

== ENCOUNTER 2024-11-29 18:12 | Emergency (ER) | payer OTHER ==
[~2024-11-29] VITALS: Ht 172.7 cm; Wt 115.7 kg
[~2024-11-29 18:12] MED LIST changes: +ABILIFY MAINTE300 M1 IM; +AMLO10 PO; +CATAPRES0.1 MG PO; +HYDR10 PO; +LAMO25 PO; +OLAN10 PO
[2024-11-29 18:28] VITALS: BP 186/100
[2024-11-29 19:32] LABS: Source, Urine Clean Catch
[2024-11-29 19:40] LABS: BASOPHILS ABSOLUTE AUTO 0.06 K/mm3 (0.00-0.23); BASOPHILS PERCENT AUTO 1 % (0-2); EOSINOPHILS ABSOLUTE AUTO 0.28 K/mm3 (0.00-0.68); EOSINOPHILS PERCENT AUTO 4 % (0-6); Hematocrit 39.3 % (37.0-53.0); Hemoglobin 14.3 g/dL (13.5-17.5); IMMATURE GRAN ABSOLUTE AUTO 0.03 K/mm3 (0.00-0.10); IMMATURE GRAN PERCENT AUTO 0 % (0-1); LYMPHOCYTES ABSOLUTE AUTO 3.04 K/mm3 (0.84-5.20); LYMPHOCYTES PERCENT AUTO 42 % (21-46); MONOCYTES ABSOLUTE AUTO 0.48 K/mm3 (0.16-1.47); MONOCYTES PERCENT AUTO 7 % (4-13); Mean Corpuscular HGB Conc 36.4 g/dL (31.5-36.5); Mean Corpuscular Volume 83 fL (80-100); Mean Platelet Volume 10.3 fL (9.1-12.4); NEUTROPHILS ABSOLUTE AUTO 3.43 K/mm3 (1.96-9.15); NEUTROPHILS PERCENT AUTO 47 % (41-73); Platelet Count 272 K/mm3 (150-400); RDW Coefficient Variation 11.4 % (11.7-14.2); RDW Standard Deviation 34.2 fL (35.1-46.3); Red Blood Cell Count 4.76 M/mm3 (4.30-5.90); White Blood Cell Count 7.32 K/mm3 (4.00-11.30)
[2024-11-29 19:42] LABS: Appearance, Urine Clear (Clear); Bilirubin, Urine Neg (Neg); Blood, Urine Neg (Neg); Color, Urine Pale Yellow (P-Yellow); Glucose Qualitative, Urine 4+ (Neg); Ketones, Urine Neg (Neg); Leukocyte Esterase, Urine Neg (Neg); Nitrite, Urine Neg (Neg); Protein, Urine Neg (Neg); Urobilinogen, Urine NORM (Normal)
[2024-11-29 19:52] LABS: Ethanol (Alcohol), Blood, Med <3 mg/dL; Salicylate <1.7 mg/dL (2.8-20.0)
[2024-11-29 20:02] LABS: U Amphetamine Screen Not Detected; U Barbituate Screen Not Detected; U Benzodiazapine Screen Not Detected; U Buprenorphine Screen Not Detected; U Cannabinoids Screen Not Detected; U Cocaine Screen Not Detected; U Methadone Screen Not Detected; U Methamphetamine Screen Not Detected; U Opiates Screen Not Detected; U Oxycodone Screen Not Detected; U Phencyclidine Screen Not Detected
[2024-11-29 20:04] LABS: Alanine Aminotransfer (ALT/SGP 51 U/L (12-78); Albumin, Blood 3.7 g/dL (3.4-5.0); Albumin/Globulin Ratio 0.9 (0.8-1.8); Alk Phos 73 U/L (50-136); Anion Gap 11 mmol/L (3-11); Aspartate Aminotrans (AST/SGOT 19 U/L (12-37); Bilirubin, Total 0.2 mg/dL (0.1-1.0); Blood Urea Nitrogen 12 mg/dL (8-24); Bun/Creatinine Ratio 16.3 (12.0-20.0); CO2, Blood 24 mmol/L (21-32); Calcium, Blood 9.3 mg/dL (8.5-10.1); Chloride, Blood 103 mmol/L (98-108); Creatinine, Blood 0.74 mg/dL (0.60-1.20); Globulin, Blood 4.1 g/dL (2.2-4.0); Glomerular Filtration Rate 111 (60-); Glucose, Blood 319 mg/dL (70-99); Sodium, Blood 134 mmol/L (136-145); Total Protein, Blood 7.8 g/dL (6.4-8.2)
[2024-11-29 20:07] LABS: Acetaminophen, Random <2.0 ug/mL (10.0-30.0)
== END 2024-11-29 21:17 | disposition home or self-care (01) ==
LOC: ER 18:12
PROVIDERS: Student in an Organized Health Care Education/Training Program
DX: R44.0 Auditory hallucinations (principal); F31.9 Bipolar disorder, unspecified; E11.65 Type 2 diabetes mellitus with hyperglycemia; I10 Essential (primary) hypertension; J45.909 Unspecified asthma, uncomplicated; Z87.891 Personal history of nicotine dependence; Z79.899 Other long term (current) drug therapy; Z79.51 Long term (current) use of inhaled steroids; Z79.891 Long term (current) use of opiate analgesic; Z79.890 Hormone replacement therapy; Z79.83 Long term (current) use of bisphosphonates; Z79.84 Long term (current) use of oral hypoglycemic drugs; Z79.1 Long term (current) use of non-steroidal anti-inflammatories (NSAID); Z79.4 Long term (current) use of insulin
CPT/HCPCS: 80053; 80320; 81003; 85025; 99284; G0480

== ENCOUNTER 2024-12-15 04:21 | Emergency (ER) | payer OTHER ==
[~2024-12-15] VITALS: Ht 172.7 cm; Wt 112.5 kg
[2024-12-15] MEDS ORDERED: NS 1,000 ML IV SCH (04:35)
[2024-12-15 04:44] LABS: BASOPHILS ABSOLUTE AUTO 0.07 K/mm3 (0.00-0.23); BASOPHILS PERCENT AUTO 1 % (0-2); EOSINOPHILS ABSOLUTE AUTO 0.29 K/mm3 (0.00-0.68); EOSINOPHILS PERCENT AUTO 3 % (0-6); Hematocrit 38.2 % (37.0-53.0); Hemoglobin 13.3 g/dL (13.5-17.5); IMMATURE GRAN ABSOLUTE AUTO 0.04 K/mm3 (0.00-0.10); IMMATURE GRAN PERCENT AUTO 1 % (0-1); LYMPHOCYTES ABSOLUTE AUTO 3.19 K/mm3 (0.84-5.20); LYMPHOCYTES PERCENT AUTO 37 % (21-46); MONOCYTES ABSOLUTE AUTO 0.69 K/mm3 (0.16-1.47); MONOCYTES PERCENT AUTO 8 % (4-13); Mean Corpuscular HGB 29.3 pg (26.0-34.0); Mean Corpuscular HGB Conc 34.8 g/dL (31.5-36.5); Mean Corpuscular Volume 84 fL (80-100); Mean Platelet Volume 10.1 fL (9.1-12.4); NEUTROPHILS ABSOLUTE AUTO 4.45 K/mm3 (1.96-9.15); NEUTROPHILS PERCENT AUTO 51 % (41-73); Platelet Count 259 K/mm3 (150-400); RDW Coefficient Variation 11.6 % (11.7-14.2); RDW Standard Deviation 35.3 fL (35.1-46.3); Red Blood Cell Count 4.54 M/mm3 (4.30-5.90); White Blood Cell Count 8.73 K/mm3 (4.00-11.30)
[2024-12-15 05:04] LABS: Albumin, Blood 3.7 g/dL (3.4-5.0); Albumin/Globulin Ratio 0.9 (0.8-1.8); Bilirubin, Total 0.3 mg/dL (0.1-1.0); Bun/Creatinine Ratio 18.2 (12.0-20.0); Calcium, Blood 8.9 mg/dL (8.5-10.1); Creatinine, Blood 0.82 mg/dL (0.60-1.20); Potassium, Blood 3.8 mmol/L (3.5-5.5); Total Protein, Blood 7.7 g/dL (6.4-8.2)
[2024-12-15] MEDS ORDERED: Insulin Human Lispro 100 Units/ML 3ML Syringe SC ONE (05:15)
[2024-12-15] MEDS ORDERED: AmLODIPine Besylate 5 MG Tab PO ONE (05:15)
[2024-12-15] MEDS ORDERED: Insulin Glargine-Yfgn 100 Unit/mL 3 ML SYR SC ONE (05:15)
[2024-12-15] MEDS ORDERED: Lisinopril 20 MG Tab PO ONE (05:15)
[2024-12-15] MEDS ORDERED: RX Prepack Albuterol 1 PREPACK/6.7 GM INH UD ONE (05:15)
[2024-12-15] MEDS ORDERED: BASAGLAR K100 UNIT/3 SC (05:24)
[2024-12-15] MEDS ORDERED: TRULICITY3 MG/0.5 M SC (05:24)
[2024-12-15] MEDS ORDERED: Catapres0.1 MG PO (05:24)
[2024-12-15] MEDS ORDERED: OLAN20 MM (05:24)
[2024-12-15] MEDS ORDERED: ATOR40TA PO (05:24)
[2024-12-15] MEDS ORDERED: HUMALOG KW100 UNIT/1 SC (05:24)
[2024-12-15] MEDS ORDERED: Norvasc5 MG PO (05:24)
[2024-12-15] MEDS ORDERED: Lamictal25 MG PO (05:24)
[2024-12-15] MEDS ORDERED: ZESTRIL40 M1 PO (05:24)
[2024-12-15] MEDS ORDERED: ABILIFY MYCITE10 M2 PO (05:24)
[2024-12-15] MEDS ORDERED: QUET200 PO (05:24)
[2024-12-15] MEDS ORDERED: GLUCOPHAGE1000 M1 PO (05:24)
[2024-12-15 05:30] VITALS: BP 182/107
== END 2024-12-15 06:02 | disposition home or self-care (01) ==
LOC: ER 04:21
PROVIDERS: Emergency Medicine
DX: E11.65 Type 2 diabetes mellitus with hyperglycemia (principal); J45.901 Unspecified asthma with (acute) exacerbation; I10 Essential (primary) hypertension; F43.10 Post-traumatic stress disorder, unspecified; G47.33 Obstructive sleep apnea (adult) (pediatric); Z76.0 Encounter for issue of repeat prescription; Z87.891 Personal history of nicotine dependence; Z79.899 Other long term (current) drug therapy; Z79.4 Long term (current) use of insulin
CPT/HCPCS: 71045; 80053; 82947; 85025; 93005; 93010; 96360; 99285-25; A9270; J1815; J7030

== ENCOUNTER 2025-02-07 15:12 | Emergency (ER) | payer OTHER ==
[~2025-02-07] VITALS: Ht 172.7 cm; Wt 120.2 kg
[~2025-02-07 15:12] MED LIST changes: +BASAGLAR K100 UNIT/3 SC; +Catapres0.1 MG PO; +GLUCOPHAGE1000 M1 PO; +Lamictal25 MG PO; +Norvasc5 MG PO; +OLAN20 MM; +QUET200 PO; +TRULICITY3 MG/0.5 M SC; +ZESTRIL40 M1 PO
[2025-02-07 18:00] VITALS: BP 121/78
== END 2025-02-07 18:09 | disposition home or self-care (01) ==
LOC: ER 15:12
DX: S09.90XA Unspecified injury of head, initial encounter (principal); M54.2 Cervicalgia; I10 Essential (primary) hypertension; J45.909 Unspecified asthma, uncomplicated; F43.10 Post-traumatic stress disorder, unspecified; Z87.891 Personal history of nicotine dependence; Z59.89 Other problems related to housing and economic circumstances; G47.33 Obstructive sleep apnea (adult) (pediatric); Z79.4 Long term (current) use of insulin; Z79.899 Other long term (current) drug therapy; Z79.84 Long term (current) use of oral hypoglycemic drugs; W18.30XA Fall on same level, unspecified, initial encounter
CPT/HCPCS: 70450; 72125; 99284-25

== ENCOUNTER → 2025-02-21 | Outpatient (CLI) | payer OTHER ==
[2025-02-21 10:20] LABS: BASOPHILS ABSOLUTE AUTO 0.05 K/mm3 (0.00-0.23); BASOPHILS PERCENT AUTO 1 % (0-2); EOSINOPHILS ABSOLUTE AUTO 0.16 K/mm3 (0.00-0.68); EOSINOPHILS PERCENT AUTO 2 % (0-6); Hematocrit 41.5 % (37.0-53.0); Hemoglobin 14.4 g/dL (13.5-17.5); IMMATURE GRAN ABSOLUTE AUTO 0.04 K/mm3 (0.00-0.10); IMMATURE GRAN PERCENT AUTO 1 % (0-1); LYMPHOCYTES ABSOLUTE AUTO 2.04 K/mm3 (0.84-5.20); LYMPHOCYTES PERCENT AUTO 23 % (21-46); MONOCYTES ABSOLUTE AUTO 0.55 K/mm3 (0.16-1.47); MONOCYTES PERCENT AUTO 6 % (4-13); Mean Corpuscular HGB Conc 34.7 g/dL (31.5-36.5); Mean Corpuscular Volume 85 fL (80-100); NEUTROPHILS ABSOLUTE AUTO 6.04 K/mm3 (1.96-9.15); NEUTROPHILS PERCENT AUTO 68 % (41-73); NRBC ABSOLUTE 0.00 K/mm3 (0.00-0.02); NRBC Auto 0.0 /100 WBC (0.0-0.2); Platelet Count 241 K/mm3 (150-400); RDW Coefficient Variation 12.2 % (11.7-14.2); RDW Standard Deviation 37.2 fL (35.1-46.3)
[2025-02-21 10:34] LABS: Alanine Aminotransfer (ALT/SGP 34.0 U/L (12-78); Albumin, Blood 3.9 g/dL (3.4-5.0); Albumin/Globulin Ratio 1.0 (0.8-1.8); Anion Gap 16.0 mmol/L (3-11); Aspartate Aminotrans (AST/SGOT 15.0 U/L (12-37); Bilirubin, Total 0.6 mg/dL (0.1-1.0); Blood Urea Nitrogen 30.0 mg/dL (8-24); CO2, Blood 20.0 mmol/L (21-32); Calcium, Blood 9.4 mg/dL (8.5-10.1); Chloride, Blood 106.0 mmol/L (98-108); Creatinine, Blood 1.03 mg/dL (0.60-1.20); Globulin, Blood 4.1 g/dL (2.2-4.0); Glucose, Blood 183.0 mg/dL (70-99); Potassium, Blood 4.6 mmol/L (3.5-5.5); Sodium, Blood 137.0 mmol/L (136-145); Total Protein, Blood 8.0 g/dL (6.4-8.2)
== END ==
LOC: LAB 10:14 → LAB SHORT 10:14
PROVIDERS: Emergency Medicine
DX: Z01.89 Encounter for other specified special examinations (principal); R53.83 Other fatigue
CPT/HCPCS: 80053; 83690; 85025